=== PATIENT | male | born 1945 | race Caucasian/White ===

== ENCOUNTER 2017-06-05 11:24 | Emergency (ER) | payer MEDICARE ==
[2016-11-14 18:59] VITALS: BMI 23.1
[~2017-06-05 11:24] MED LIST: ADVAIR HFA 230-12 GM INH; ALBUTEROL0.63 MG/3 INH; ANTIVERT12.5 MG PO; ASPIRIN81 MG PO; BAYER CHEWABLE81 MG PO; CARDIZEM CD240 MG PO; CYCLOBENZAPRINE10 MG PO; DALIRESP500 MCG PO; FLORANEX / LACT1 TAB PO; FLUTICASONE PRO16 GM NASAL; HYDROCODONE-APA1 TAB PO; IPRAT-ALBUT 0.5-3 ML UPD; K-TAB10 MEQ PO; LEVAQUIN500 MG PO; LEVAQUIN750 MG PO; LEVITRA10 MG PO; LIPITOR20 MG PO; LOPRESSOR25 MG PO; MUCINEX600 MG PO; ORAPRED ODT10 MG/TAB PO; PRINIVIL20 MG PO; SINGULAIR10 MG PO; STERAPRED DS 1210 MG PO; TERAZOSIN HCL2 MG PO
== END 2017-06-05 12:35 | disposition home or self-care (01) ==
LOC: D.ER 11:24
DX: S61.412A Laceration without foreign body of left hand, initial encounter (principal); X58.XXXA Exposure to other specified factors, initial encounter; Y93.89 Activity, other specified; Y92.89 Other specified places as the place of occurrence of the external cause; I25.10 Atherosclerotic heart disease of native coronary artery without angina pectoris; J44.9 Chronic obstructive pulmonary disease, unspecified; I10 Essential (primary) hypertension

== ENCOUNTER 2017-08-14 21:19 | Inpatient (IN) | payer MEDICARE ==
[~2017-08-14] VITALS: Ht 182.9 cm; Wt 59.1 kg
[2017-08-14 21:58] LABS: BASOPHILS 0.5 % (0-2); HEMATOCRIT 43.7 % (42.0-54.0); HEMOGLOBIN 15.6 g/dL (13.5-17.5); IMMATURE GRANULOCYTES 0.1 % (0-5); LYMPHOCYTES 24.6 % (15-50); MCH 33.1 pg (26.0-34.0); MCHC 35.7 g/dL (31.0-37.0); MCV 92.6 fL (80.0-100.0); MEAN PLATELET VOLUME 10.1 fL (7.4-10.4); MONOCYTES 14.9 % (2-11); NEUTROPHILS 53.9 % (40-80); RBC 4.72 10x6/uL (4.20-6.10); RDW 13.2 % (11.5-14.5); WBC 8.4 10x3/uL (4.8-10.8)
[2017-08-14 22:07] LABS: PLATELET COUNT 153 10x3/uL (130-400)
[2017-08-14 22:13] LABS: ALKALINE PHOSPHATASE 78 U/L (46-116); ALT (SGPT) 27 U/L (10-68); BILIRUBIN - TOTAL 0.74 mg/dL (0.2-1.3); CALC OSMOLALITY 262 mosm/kg (275-300); CALCIUM 9.4 mg/dL (8.5-10.1); CARBON DIOXIDE 28.3 mmol/L (21.0-32.0); CHLORIDE - SERUM 97 mmol/L (98-107); CREATININE - SERUM 0.6 mg/dL (0.6-1.3); GLUCOSE 89 mg/dL (74-106); POTASSIUM - SERUM 3.8 mmol/L (3.5-5.1); SODIUM 133 mmol/L (136-145); UREA NITROGEN 8 mg/dL (7-18); eGFR NON AFRICAN AMERICAN > 90 mL/min (90-120)
[2017-08-14 22:24] LABS: CKMB 4.7 U/L (0.0-3.6); CREATINE KINASE 228 UL (21-232); TROPONIN-I < 0.017 ng/mL (0.000-0.060)
[2017-08-15] VITALS: BP 147/89
--- NOTE | 2017-08-15 00:05 | NUR ---
RECEIVED TO FLOOR FROM ER, PT ORIENTED TO FLOOR, DENIES NEEDS, CALL LIGHT IN REACH, PT HAS WALLET WITH $1,000 AND REFUSES TO SEND TO [facility], STATES HE HAS FAMILY COMING TO PICK IT UP IN THE MORNING, WILL CONTINUE TO MONITOR
[2017-08-15] MEDS ORDERED: PREDNISONE5 MG PO (00:27)
[2017-08-15 01:00] VITALS: BP 147/89; Ht 182.9 cm; Wt 59.1 kg
[2017-08-15 04:00] VITALS: BP 150/85
[2017-08-15 08:21] VITALS: BP 134/88
--- NOTE | 2017-08-15 10:11 | NUR ---
COFFEE AND NON SKID SOCKS PROVIDED AT THIS TIME. NO DISTRESS.
[2017-08-15] MEDS ORDERED: STERAPRED DS 1010 MG PO (10:53)
[2017-08-15 12:19] VITALS: BP 137/83
--- NOTE | 2017-08-15 13:37 | NUR ---
18 GAUGE IV REMOVED FROM LEFT AC PATIENT IS BEING DISCHARGED. CATHETER TIP INTACT. NO BLEEDING FROM STIE. 2X2 GAUZE APPLIED AND SECURED WITH TAPE. TOELRATED REMOVAL OF IV WELL. NO DISTRESS.
--- NOTE | 2017-08-15 14:19 | NUR ---
1400 DISCHARGE INSTRUCTION PROVIDED TO PATIENT. PATIENT VERBALIZED UNDERSTANDING OF ALL INSTRUCTIONS PROVIDED. PATIENT STATES HE WILL GET THE MEDICATION FROM [facility] TODAY AND GET THAT STARTED. TELEMETRY REMOVED 1415 PATIENT LEFT UNIT VIA WHEELCHAIR WITH ALL PERSONAL BELONGINGS. PATIENT IN NO ACUTE DISTRESS UPON LEAVING UNIT. PATIENT DISCHARGED TO HOME WITH FAMILY.
--- NOTE | 2017-08-15 17:59 | NUR ---
Late Entry 1215 Patient for discharge to home today. Patient's nebulizer medication changed to Duoneb. He receives his nebulizer medication from [facility] TC to [facility]. Received CB from on-call electric truck driver. Only the electric truck driver is available on the weekend. Will follow up with [facility] on Thursday for them to order the medication. Patient stated he will obtain the Duoneb from [facility].
== END 2017-08-15 14:15 | disposition home or self-care (01) | DRG 192 ==
LOC: D.ER 21:19 → D.M2 23:13
PROVIDERS: Family Medicine; ADMIT Family Medicine
DX: J44.1 Chronic obstructive pulmonary disease with (acute) exacerbation (principal); Z72.0 Tobacco use; Z57.2 Occupational exposure to dust; I10 Essential (primary) hypertension

== ENCOUNTER 2017-11-11 05:32 | Inpatient (IN) | payer MEDICARE ==
[~2017-11-11] VITALS: Ht 182.9 cm; Wt 66.9 kg
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
[~2017-11-11 05:32] MED LIST changes: +PREDNISONE5 MG PO; +STERAPRED DS 1010 MG PO
[2017-11-11 06:05] LABS: HEMATOCRIT 44.4 % (42.0-54.0); HEMOGLOBIN 15.9 g/dL (13.5-17.5); MCH 33.2 pg (26.0-34.0); MCHC 35.8 g/dL (31.0-37.0); MCV 92.7 fL (80.0-100.0); MEAN PLATELET VOLUME 10.5 fL (7.4-10.4); RBC 4.79 10x6/uL (4.20-6.10); RDW 13.6 % (11.5-14.5); WBC 3.9 10x3/uL (4.8-10.8)
[2017-11-11 06:14] LABS: PLATELET COUNT 113 10x3/uL (130-400)
[2017-11-11 06:35] LABS: ALBUMIN 3.6 g/dL (3.4-5.0); ALKALINE PHOSPHATASE 77 U/L (46-116); ALT (SGPT) 26 U/L (10-68); BILIRUBIN - TOTAL 0.47 mg/dL (0.2-1.3); CALC OSMOLALITY 246 mosm/kg (275-300); CALCIUM 8.7 mg/dL (8.5-10.1); CHLORIDE - SERUM 88 mmol/L (98-107); CREATININE - SERUM 0.8 mg/dL (0.6-1.3); GLUCOSE 109 mg/dL (74-106); PROTEIN - SERUM 6.5 g/dL (6.4-8.2); SODIUM 123 mmol/L (136-145); UREA NITROGEN 8 mg/dL (7-18); eGFR NON AFRICAN AMERICAN > 90 mL/min (90-120)
[2017-11-11 06:41] LABS: CREATINE KINASE 171 UL (21-232); MAGNESIUM - SERUM 1.8 mg/dL (1.8-2.4); PRO BNP 46 pg/mL (0-125)
[2017-11-11 06:42] LABS: TROPONIN-I < 0.017 ng/mL (0.000-0.060)
[2017-11-11 06:54] LABS: ANISOCYTOSIS OCC; EOSINOPHILS 1 % (0-7); LYMPHOCYTES 30 % (15-50); MONOCYTES 20 % (2-11); NEUTROPHILS 45 % (40-80); PLATELET ESTIMATE DECREASED
[2017-11-11 14:28] VITALS: BMI 20.4
[2017-11-11 17:32] VITALS: BP 148/87
[2017-11-12] VITALS: BP 128/66
[2017-11-12 05:14] LABS: CALC OSMOLALITY 267 mosm/kg (275-300); CALCIUM 8.5 mg/dL (8.5-10.1); CARBON DIOXIDE 27.6 mmol/L (21.0-32.0); CHLORIDE - SERUM 97 mmol/L (98-107); CREATININE - SERUM 0.7 mg/dL (0.6-1.3); MAGNESIUM - SERUM 1.9 mg/dL (1.8-2.4); PHOSPHOROUS 3.3 mg/dL (2.5-4.9); POTASSIUM - SERUM 3.9 mmol/L (3.5-5.1); SODIUM 133 mmol/L (136-145); UREA NITROGEN 10 mg/dL (7-18); eGFR NON AFRICAN AMERICAN > 90 mL/min (90-120)
[2017-11-12 05:18] LABS: GLUCOSE 161 mg/dL (74-106)
[2017-11-12 05:21] LABS: BASOPHILS 0 % (0-2); EOSINOPHILS 0 % (0-7); HEMATOCRIT 42.7 % (42.0-54.0); LYMPHOCYTES 10.3 % (15-50); MCH 32.3 pg (26.0-34.0); MCHC 35.1 g/dL (31.0-37.0); MEAN PLATELET VOLUME 10.3 fL (7.4-10.4); NEUTROPHILS 76.7 % (40-80); PLATELET COUNT 109 10x3/uL (130-400); RBC 4.64 10x6/uL (4.20-6.10); RDW 13.5 % (11.5-14.5)
[2017-11-12 07:47] LABS: HEMOGLOBIN A1C 5.1 % (4.8-6.0)
[2017-11-12 08:51] VITALS: BP 131/70
[2017-11-12 12:30] VITALS: BP 128/76
[2017-11-12 14:20] VITALS: Ht 182.9 cm; Wt 66.9 kg
[2017-11-12 20:00] VITALS: BP 114/62
[2017-11-13] VITALS: BP 115/55
[2017-11-13 04:00] VITALS: BP 106/58
[2017-11-13 05:29] LABS: BASOPHILS 0 % (0-2); EOSINOPHILS 0 % (0-7); IMMATURE GRANULOCYTES 0.2 % (0-5); LYMPHOCYTES 3.9 % (15-50); MCH 32.8 pg (26.0-34.0); MCV 93.7 fL (80.0-100.0); MEAN PLATELET VOLUME 10.6 fL (7.4-10.4); MONOCYTES 5.3 % (2-11); NEUTROPHILS 90.6 % (40-80); PLATELET COUNT 117 10x3/uL (130-400); RBC 4.27 10x6/uL (4.20-6.10); RDW 13.6 % (11.5-14.5)
[2017-11-13 05:32] LABS: WBC 8.2 10x3/uL (4.8-10.8)
[2017-11-13 05:39] LABS: CALC OSMOLALITY 270 mosm/kg (275-300); CALCIUM 8.4 mg/dL (8.5-10.1); CHLORIDE - SERUM 102 mmol/L (98-107); CREATININE - SERUM 0.6 mg/dL (0.6-1.3); GLUCOSE 165 mg/dL (74-106); POTASSIUM - SERUM 3.6 mmol/L (3.5-5.1); SODIUM 134 mmol/L (136-145); UREA NITROGEN 11 mg/dL (7-18); eGFR NON AFRICAN AMERICAN > 90 mL/min (90-120)
[2017-11-13 08:32] VITALS: BP 111/60
[2017-11-13 12:05] VITALS: BP 132/69
[2017-11-13 20:00] VITALS: BP 138/69
[2017-11-14] VITALS: BP 110/54
[2017-11-14 04:00] VITALS: BP 121/64
[2017-11-14 04:53] LABS: BASOPHILS 0 % (0-2); EOSINOPHILS 0 % (0-7); HEMATOCRIT 40.9 % (42.0-54.0); HEMOGLOBIN 14.1 g/dL (13.5-17.5); IMMATURE GRANULOCYTES 0.2 % (0-5); LYMPHOCYTES 4.9 % (15-50); MCH 32.8 pg (26.0-34.0); MCHC 34.5 g/dL (31.0-37.0); MCV 95.1 fL (80.0-100.0); MEAN PLATELET VOLUME 10.6 fL (7.4-10.4); MONOCYTES 5.8 % (2-11); NEUTROPHILS 89.1 % (40-80); PLATELET COUNT 124 10x3/uL (130-400); RDW 14.1 % (11.5-14.5); WBC 8.8 10x3/uL (4.8-10.8)
[2017-11-14 05:23] LABS: CALC OSMOLALITY 275 mosm/kg (275-300); CALCIUM 8.6 mg/dL (8.5-10.1); CARBON DIOXIDE 26.2 mmol/L (21.0-32.0); CHLORIDE - SERUM 102 mmol/L (98-107); CREATININE - SERUM 0.6 mg/dL (0.6-1.3); GLUCOSE 118 mg/dL (74-106); POTASSIUM - SERUM 3.8 mmol/L (3.5-5.1); SODIUM 137 mmol/L (136-145); eGFR NON AFRICAN AMERICAN > 90 mL/min (90-120)
[2017-11-14 05:26] LABS: UREA NITROGEN 16 mg/dL (7-18)
[2017-11-14 07:51] VITALS: BP 166/78
[2017-11-14] MEDS ORDERED: VIBRAMYCIN 100100 MG PO (08:17)
[2017-11-14] MEDS ORDERED: PREDNISONE10 MG PO (08:20)
== END 2017-11-14 12:21 | disposition home or self-care (01) | DRG 190 ==
LOC: D.ER 05:32 → D.M2 12:50
PROVIDERS: Emergency Medicine; Family Medicine; Internal Medicine Pulmonary Disease
DX: J44.0 Chronic obstructive pulmonary disease with (acute) lower respiratory infection (principal); J18.9 Pneumonia, unspecified organism; E87.1 Hypo-osmolality and hyponatremia; J44.1 Chronic obstructive pulmonary disease with (acute) exacerbation; I10 Essential (primary) hypertension; I25.10 Atherosclerotic heart disease of native coronary artery without angina pectoris; M54.5 Low back pain; G89.29 Other chronic pain; J30.9 Allergic rhinitis, unspecified; Z99.81 Dependence on supplemental oxygen; E78.5 Hyperlipidemia, unspecified; D69.6 Thrombocytopenia, unspecified; R76.11 Nonspecific reaction to tuberculin skin test without active tuberculosis; Z95.5 Presence of coronary angioplasty implant and graft; Z72.0 Tobacco use

== ENCOUNTER 2017-12-31 07:04 | Day surgery (SDC) | payer MEDICARE ==
[~2017-12-31] VITALS: Ht 182.9 cm; Wt 67.1 kg
--- NOTE | ~2017-12-31 | OP ---
PATIENT NAME: JOSE LEE MEDICAL RECORD: [id number] :[birth year] LOCATION:D.OPS ADMISSION DATE: SURGEON: FREDERICK QUINN MD DATE OF OPERATION: 12/31/2017 PREOPERATIVE DIAGNOSES: 1. Epigastric incisional hernia. 2. Recurrent right inguinal hernia. 3. Tobacco-dependence syndrome. 4. Chronic obstructive pulmonary disease. 5. Hypertension. 6. Hyperlipidemia. POSTOPERATIVE DIAGNOSES: 1. Epigastric incisional hernia. 2. Recurrent right inguinal hernia. 3. Tobacco-dependence syndrome. 4. Chronic obstructive pulmonary disease. 5. Hypertension. 6. Hyperlipidemia. PROCEDURES: 1. Epigastric ventral hernia repair without mesh. 2. Right inguinal hernia repair with medium PHS mesh. SURGEON: Frederick Quinn MD REPORT OF PROCEDURE: The patient's abdomen was prepped and draped in sterile fashion. A longitudinal incision was made overlying the epigastric hernia defect. We came around the hernia sac and we were able to push this back into the abdominal cavity. The fascial defect was approximately 1.2 cm in greatest diameter. This was wider than it was tall. We were able to free up the fascial edges and reapproximate the fascia using interrupted 0 Prolenes times 4. This was done in a transverse fashion with no tension. The sutures were then tacked down to where there were not sticking up towards the skin using interrupted 3-0 Vicryls. The subcutaneous tissues were irrigated out and then reapproximated with interrupted 3-0 Vicryl and the skin was closed with running subcutaneous 5-0 Monocryl. A 5 mL of 1% lidocaine plain was infused into the surrounding tissues. We then approached the right inguinal region. An oblique incision was made above the inguinal ligament. Electrocautery was used to dissect through the subcutaneous tissue, down to the external oblique fascia. This fascia was opened up using electrocautery to the external ring. Once inside, we were able to elevate the spermatic cord and a Huong was placed around it. The patient had a previous hernia repair. I did not definitively find a piece of mesh in the wounds. The patient did have a fat-containing hernia defect on the superior medial aspect of the inguinal canal. This was pushed back in place and the preperitoneal space of Retzius was opened up through this opening. A medium PHS mesh was then inserted through this opening and fanned out in the preperitoneal space. The mesh was then sutured into place with multiple interrupted 0 Vicryls. The wound was then irrigated out thoroughly with normal saline. We found the ilioinguinal nerve and this was high-ligated. The external oblique fascia was closed with running 2-0 Vicryl. Willie's was closed with interrupted 3-0 Vicryl and the skin was closed with running subcutaneous 5-0 Monocryl. A 10 mL of 0.25% Marcaine plain were infused into the surrounding tissues and the wounds were dressed appropriately. OPERATIVE REPORT [id number] JOSE LEE COMPLICATIONS: None. CONDITION: Stable. ANESTHESIA: Spinal and local. BLOOD LOSS: Minimal. TRANSINT:[id number] Voice Confirmation ID: [id number] DOCUMENT ID: [id number] FREDERICK QUINN MD CC: ROSY JACOBS DO [id number] DICTATION DATE: 12/31/17 1058 DRILL PUNCH OPERATOR: 12/31/17 1118 [facility] [address] [place] [address]
[~2017-12-31 07:04] MED LIST changes: +PREDNISONE10 MG PO; +VIBRAMYCIN 100100 MG PO
[2017-12-31 07:32] LABS: BASOPHILS 0.3 % (0-2); EOSINOPHILS 5.2 % (0-7); LYMPHOCYTES 27.4 % (15-50); MCH 32.3 pg (26.0-34.0); MCV 94.8 fL (80.0-100.0); MEAN PLATELET VOLUME 10.1 fL (7.4-10.4); MONOCYTES 15.4 % (2-11); NEUTROPHILS 51.7 % (40-80); RBC 4.96 10x6/uL (4.20-6.10); RDW 13.7 % (11.5-14.5); WBC 7.3 10x3/uL (4.8-10.8)
[2017-12-31 07:36] LABS: PLATELET COUNT 179 10x3/uL (130-400)
[2017-12-31 07:47] LABS: CALC OSMOLALITY 275 mosm/kg (275-300); CARBON DIOXIDE 29.1 mmol/L (21.0-32.0); CHLORIDE - SERUM 101 mmol/L (98-107); CREATININE - SERUM 0.8 mg/dL (0.6-1.3); GLUCOSE 86 mg/dL (74-106); SODIUM 139 mmol/L (136-145); UREA NITROGEN 11 mg/dL (7-18); eGFR NON AFRICAN AMERICAN > 90 mL/min (90-120)
[2017-12-31 08:36] VITALS: BP 130/84; Ht 182.9 cm; Wt 67.1 kg
[2017-12-31] MEDS ORDERED: HYDROCODONE-APA1 TAB PO (10:48)
== END 2017-12-31 14:15 | disposition home or self-care (01) ==
LOC: D.OPS 07:04
PROVIDERS: Surgery
DX: K43.2 Incisional hernia without obstruction or gangrene (principal); K40.91 Unilateral inguinal hernia, without obstruction or gangrene, recurrent

== ENCOUNTER 2018-01-06 17:43 | Emergency (ER) | payer MEDICARE ==
[2017-12-31 08:36] VITALS: BMI 20.1
[2018-01-06 18:36] LABS: BASOPHILS 0.4 % (0-2); EOSINOPHILS 1.9 % (0-7); HEMATOCRIT 38.5 % (42.0-54.0); HEMOGLOBIN 13.6 g/dL (13.5-17.5); IMMATURE GRANULOCYTES 0.2 % (0-5); MCH 32.6 pg (26.0-34.0); MCHC 35.3 g/dL (31.0-37.0); MCV 92.3 fL (80.0-100.0); MEAN PLATELET VOLUME 9.7 fL (7.4-10.4); MONOCYTES 15.3 % (2-11); NEUTROPHILS 73.2 % (40-80); PLATELET COUNT 155 10x3/uL (130-400); RBC 4.17 10x6/uL (4.20-6.10); RDW 13.3 % (11.5-14.5); WBC 5.2 10x3/uL (4.8-10.8)
[2018-01-06 19:12] LABS: ALBUMIN 3.3 g/dL (3.4-5.0); ALKALINE PHOSPHATASE 63 U/L (46-116); ALT (SGPT) 15 U/L (10-68); BILIRUBIN - TOTAL 0.33 mg/dL (0.2-1.3); CALC OSMOLALITY 261 mosm/kg (275-300); CALCIUM 8.6 mg/dL (8.5-10.1); CARBON DIOXIDE 26.3 mmol/L (21.0-32.0); CHLORIDE - SERUM 96 mmol/L (98-107); CREATININE - SERUM 0.7 mg/dL (0.6-1.3); GLUCOSE 108 mg/dL (74-106); POTASSIUM - SERUM 3.3 mmol/L (3.5-5.1); PROTEIN - SERUM 6.2 g/dL (6.4-8.2); SODIUM 131 mmol/L (136-145); UREA NITROGEN 7 mg/dL (7-18); eGFR NON AFRICAN AMERICAN > 90 mL/min (90-120)
== END 2018-01-06 21:15 | disposition home or self-care (01) ==
LOC: D.ER 17:43
PROVIDERS: Emergency Medicine
DX: J44.1 Chronic obstructive pulmonary disease with (acute) exacerbation (principal); J06.9 Acute upper respiratory infection, unspecified; F17.200 Nicotine dependence, unspecified, uncomplicated; I25.10 Atherosclerotic heart disease of native coronary artery without angina pectoris; I10 Essential (primary) hypertension

== ENCOUNTER → 2018-07-06 09:35 | Outpatient (CLI) | payer MEDICARE ==
[2017-12-31 08:36] VITALS: BMI 20.1
[~2018-07-06 09:35] MED LIST changes: +ALBUTEROL SULF8.5 GM INH; +BACLOFEN10 MG PO; +DESERYL50 M2 PO; +NORCO 10-325 TA1 TAB PO; +XOPENEX 1.1.25 MG/3 UPD; +ZESTRIL20 MG PO
[2018-07-08 11:18] LABS: IGG SUBCLASS 1 290 mg/dL (248-810); IGG SUBCLASS 2 150 mg/dL (130-555); IGG SUBCLASS 3 46 mg/dL (15-102); IGG SUBCLASS 4 72 mg/dL (2-96)
== END | disposition home or self-care (01) ==
LOC: D.RT 09:35
PROVIDERS: Internal Medicine Pulmonary Disease
DX: J44.9 Chronic obstructive pulmonary disease, unspecified (principal); D80.3 Selective deficiency of immunoglobulin G [IgG] subclasses

== ENCOUNTER 2018-08-14 12:06 | Emergency (ER) | payer MEDICARE ==
[~2018-08-14] VITALS: Ht 182.9 cm; Wt 65.9 kg
[~2018-08-14 12:06] MED LIST changes: -ALBUTEROL SULF8.5 GM INH; -BACLOFEN10 MG PO; -DESERYL50 M2 PO; -NORCO 10-325 TA1 TAB PO; -XOPENEX 1.1.25 MG/3 UPD; -ZESTRIL20 MG PO
[2018-08-14 12:11] VITALS: Ht 182.9 cm; Wt 65.9 kg
[2018-08-14 12:47] LABS: BASOPHILS 0.2 % (0-2); EOSINOPHILS 0.2 % (0-7); HEMATOCRIT 44.7 % (42.0-54.0); HEMOGLOBIN 15.9 g/dL (13.5-17.5); IMMATURE GRANULOCYTES 0.3 % (0-5); LYMPHOCYTES 27.1 % (15-50); MCH 33.6 pg (26.0-34.0); MCHC 35.6 g/dL (31.0-37.0); MCV 94.5 fL (80.0-100.0); MEAN PLATELET VOLUME 9.3 fL (7.4-10.4); MONOCYTES 8.1 % (2-11); NEUTROPHILS 64.1 % (40-80); PLATELET COUNT 125 10x3/uL (130-400); RBC 4.73 10x6/uL (4.20-6.10); WBC 5.9 10x3/uL (4.8-10.8)
[2018-08-14 13:00] LABS: ALBUMIN 3.4 g/dL (3.4-5.0); ALKALINE PHOSPHATASE 69 U/L (46-116); ALT (SGPT) 27 U/L (10-68); BILIRUBIN - TOTAL 0.35 mg/dL (0.2-1.3); CALC OSMOLALITY 257 mosm/kg (275-300); CALCIUM 8.8 mg/dL (8.5-10.1); CHLORIDE - SERUM 91 mmol/L (98-107); CREATININE - SERUM 0.9 mg/dL (0.6-1.3); GLUCOSE 110 mg/dL (74-106); POTASSIUM - SERUM 3.6 mmol/L (3.5-5.1); PROTEIN - SERUM 6.4 g/dL (6.4-8.2); SODIUM 129 mmol/L (136-145); UREA NITROGEN 6 mg/dL (7-18); eGFR NON AFRICAN AMERICAN 89 mL/min (90-120)
[2018-08-14 13:05] LABS: APTT 29.9 SECONDS (22.8-39.4); INR 0.94 (0.85-1.17); PROTIME 12.2 SECONDS (11.6-15.0)
[2018-08-14 13:07] LABS: D-DIMER-QUANTITATIVE 1.02 ug/mLFEU (0.20-0.54)
[2018-08-14 13:11] LABS: CKMB 1.3 U/L (0.0-3.6); CREATINE KINASE 93 UL (21-232); PRO BNP 84 pg/mL (0-125)
[2018-08-14 13:15] LABS: TROPONIN-I < 0.017 ng/mL (0.000-0.060)
[2018-08-14] MEDS ORDERED: XOPENEX 1.1.25 MG/3 UPD (16:10)
[2018-08-14 16:15] VITALS: BP 148/92
== END 2018-08-14 16:31 | disposition home or self-care (01) ==
LOC: D.ER 12:06
PROVIDERS: Family Medicine
DX: J44.1 Chronic obstructive pulmonary disease with (acute) exacerbation (principal); I10 Essential (primary) hypertension; Z99.81 Dependence on supplemental oxygen; F17.200 Nicotine dependence, unspecified, uncomplicated

== ENCOUNTER 2018-08-16 20:21 | Inpatient (IN) | payer MEDICARE, MEDICAID ==
[~2018-08-16] VITALS: Ht 182.9 cm; Wt 64.0 kg
[~2018-08-16 20:21] MED LIST changes: +XOPENEX 1.1.25 MG/3 UPD
[2018-08-16 21:03] VITALS: BP 140/82
[2018-08-16 21:20] LABS: BASOPHILS 0.2 % (0-2); EOSINOPHILS 0 % (0-7); HEMATOCRIT 41.9 % (42.0-54.0); HEMOGLOBIN 14.9 g/dL (13.5-17.5); IMMATURE GRANULOCYTES 0.3 % (0-5); LYMPHOCYTES 9.6 % (15-50); MCHC 35.6 g/dL (31.0-37.0); MCV 92.9 fL (80.0-100.0); MEAN PLATELET VOLUME 10.2 fL (7.4-10.4); MONOCYTES 9.2 % (2-11); NEUTROPHILS 80.7 % (40-80); RBC 4.51 10x6/uL (4.20-6.10); WBC 6.3 10x3/uL (4.8-10.8)
[2018-08-16 21:28] LABS: APTT 32.8 SECONDS (22.8-39.4); INR 0.92 (0.85-1.17)
[2018-08-16 21:29] LABS: D-DIMER-QUANTITATIVE 1.11 ug/mLFEU (0.20-0.54)
[2018-08-16 21:46] LABS: ALKALINE PHOSPHATASE 52 U/L (46-116); ALT (SGPT) 29 U/L (10-68); CALC OSMOLALITY 252 mosm/kg (275-300); CALCIUM 8.6 mg/dL (8.5-10.1); CARBON DIOXIDE 24.5 mmol/L (21.0-32.0); CHLORIDE - SERUM 91 mmol/L (98-107); CREATININE - SERUM 0.7 mg/dL (0.6-1.3); GLUCOSE 110 mg/dL (74-106); POTASSIUM - SERUM 3.6 mmol/L (3.5-5.1); SODIUM 125 mmol/L (136-145); UREA NITROGEN 12 mg/dL (7-18); eGFR NON AFRICAN AMERICAN > 90 mL/min (90-120)
[2018-08-16 21:49] LABS: CKMB 0.7 U/L (0.0-3.6); CREATINE KINASE 76 UL (21-232)
[2018-08-16 21:50] LABS: TROPONIN-I < 0.017 ng/mL (0.000-0.060)
[2018-08-16 22:15] LABS: PLATELET COUNT 93 10x3/uL (130-400)
[2018-08-16 22:21] VITALS: BP 122/62
[2018-08-16 22:33] LABS: PLATELET ESTIMATE DECREASED
[2018-08-16 22:56] VITALS: BP 118/64
[2018-08-17 00:40] VITALS: BP 105/69
[2018-08-17] MEDS ORDERED: SINGULAIR10 MG PO (01:17)
[2018-08-17] MEDS ORDERED: NORCO 10-325 TA1 TAB PO (01:18)
[2018-08-17] MEDS ORDERED: BACLOFEN10 MG PO (01:18)
[2018-08-17] MEDS ORDERED: FLUTICASONE PRO16 GM NASAL (01:21)
[2018-08-17] MEDS ORDERED: ZESTRIL20 MG PO (01:22)
[2018-08-17] MEDS ORDERED: DESERYL50 M2 PO (01:22)
[2018-08-17] MEDS ORDERED: LIPITOR20 MG PO (01:22)
[2018-08-17] MEDS ORDERED: ALBUTEROL SULF8.5 GM INH (01:23)
[2018-08-17 04:00] VITALS: BP 127/58
[2018-08-17 05:34] LABS: BASOPHILS 0 % (0-2); EOSINOPHILS 0 % (0-7); HEMATOCRIT 43.1 % (42.0-54.0); HEMOGLOBIN 15.4 g/dL (13.5-17.5); IMMATURE GRANULOCYTES 0.2 % (0-5); LYMPHOCYTES 4.5 % (15-50); MCH 33.2 pg (26.0-34.0); MCHC 35.7 g/dL (31.0-37.0); MCV 92.9 fL (80.0-100.0); MEAN PLATELET VOLUME 10.3 fL (7.4-10.4); MONOCYTES 3.4 % (2-11); NEUTROPHILS 91.9 % (40-80); PLATELET COUNT 100 10x3/uL (130-400); RBC 4.64 10x6/uL (4.20-6.10); RDW 14.1 % (11.5-14.5)
[2018-08-17 05:53] LABS: WBC 4.5 10x3/uL (4.8-10.8)
[2018-08-17 06:25] LABS: ALBUMIN 2.8 g/dL (3.4-5.0); ALKALINE PHOSPHATASE 46 U/L (46-116); ALT (SGPT) 30 U/L (10-68); BILIRUBIN - TOTAL 0.35 mg/dL (0.2-1.3); CALCIUM 8.5 mg/dL (8.5-10.1); CARBON DIOXIDE 27.7 mmol/L (21.0-32.0); CHLORIDE - SERUM 92 mmol/L (98-107); CKMB 0.8 U/L (0.0-3.6); CREATINE KINASE 59 UL (21-232); CREATININE - SERUM 0.7 mg/dL (0.6-1.3); PROTEIN - SERUM 5.9 g/dL (6.4-8.2); SODIUM 127 mmol/L (136-145); UREA NITROGEN 10 mg/dL (7-18); eGFR NON AFRICAN AMERICAN > 90 mL/min (90-120)
[2018-08-17 06:26] LABS: CALC OSMOLALITY 256 mosm/kg (275-300); GLUCOSE 159 mg/dL (74-106); TROPONIN-I < 0.017 ng/mL (0.000-0.060)
[2018-08-17 08:21] VITALS: BP 111/70
[2018-08-17 09:28] VITALS: Ht 182.9 cm; Wt 64.0 kg
[2018-08-17 11:23] VITALS: BP 106/63
[2018-08-17 15:39] VITALS: BP 113/71
[2018-08-17 23:42] VITALS: BP 121/71
[2018-08-18 01:57] VITALS: BP 108/73
[2018-08-18 05:16] LABS: BASOPHILS 0.2 % (0-2); EOSINOPHILS 0 % (0-7); HEMATOCRIT 40.5 % (42.0-54.0); HEMOGLOBIN 14.4 g/dL (13.5-17.5); IMMATURE GRANULOCYTES 0.2 % (0-5); LYMPHOCYTES 9.1 % (15-50); MCHC 35.6 g/dL (31.0-37.0); MCV 92.7 fL (80.0-100.0); MEAN PLATELET VOLUME 10.7 fL (7.4-10.4); MONOCYTES 9.8 % (2-11); NEUTROPHILS 80.7 % (40-80); PLATELET COUNT 110 10x3/uL (130-400); RBC 4.37 10x6/uL (4.20-6.10); RDW 13.6 % (11.5-14.5); WBC 4.4 10x3/uL (4.8-10.8)
[2018-08-18 05:41] LABS: ALBUMIN 2.6 g/dL (3.4-5.0); ALKALINE PHOSPHATASE 41 U/L (46-116); BILIRUBIN - TOTAL 0.37 mg/dL (0.2-1.3); CALC OSMOLALITY 261 mosm/kg (275-300); CALCIUM 8.2 mg/dL (8.5-10.1); CARBON DIOXIDE 28.2 mmol/L (21.0-32.0); CHLORIDE - SERUM 94 mmol/L (98-107); CREATININE - SERUM 0.6 mg/dL (0.6-1.3); GLUCOSE 141 mg/dL (74-106); PHOSPHOROUS 3.5 mg/dL (2.5-4.9); PROTEIN - SERUM 5.6 g/dL (6.4-8.2); SODIUM 130 mmol/L (136-145); UREA NITROGEN 11 mg/dL (7-18); eGFR NON AFRICAN AMERICAN > 90 mL/min (90-120)
[2018-08-18 05:45] LABS: ALT (SGPT) 22 U/L (10-68)
[2018-08-18 06:34] VITALS: BP 125/71
[2018-08-18 09:04] VITALS: BP 126/72
[2018-08-18 11:26] VITALS: BP 121/78
[2018-08-18 15:47] VITALS: BP 118/58
[2018-08-18 22:05] VITALS: BP 129/79
[2018-08-19 04:28] LABS: BASOPHILS 0.1 % (0-2); EOSINOPHILS 0 % (0-7); HEMATOCRIT 40.3 % (42.0-54.0); HEMOGLOBIN 14.4 g/dL (13.5-17.5); IMMATURE GRANULOCYTES 0.3 % (0-5); LYMPHOCYTES 7.8 % (15-50); MCH 33.3 pg (26.0-34.0); MCHC 35.7 g/dL (31.0-37.0); MCV 93.1 fL (80.0-100.0); MONOCYTES 3.9 % (2-11); NEUTROPHILS 87.9 % (40-80); RBC 4.33 10x6/uL (4.20-6.10); RDW 13.6 % (11.5-14.5)
[2018-08-19 04:43] LABS: PLATELET COUNT 133 10x3/uL (130-400); WBC 7.3 10x3/uL (4.8-10.8)
[2018-08-19 05:03] LABS: ALBUMIN 2.7 g/dL (3.4-5.0); ALKALINE PHOSPHATASE 42 U/L (46-116); ALT (SGPT) 24 U/L (10-68); BILIRUBIN - TOTAL 0.28 mg/dL (0.2-1.3); CALC OSMOLALITY 266 mosm/kg (275-300); CALCIUM 8.3 mg/dL (8.5-10.1); CARBON DIOXIDE 28.7 mmol/L (21.0-32.0); CHLORIDE - SERUM 97 mmol/L (98-107); CREATININE - SERUM 0.6 mg/dL (0.6-1.3); GLUCOSE 144 mg/dL (74-106); MAGNESIUM - SERUM 2.1 mg/dL (1.8-2.4); POTASSIUM - SERUM 4.1 mmol/L (3.5-5.1); PROTEIN - SERUM 5.6 g/dL (6.4-8.2); SODIUM 131 mmol/L (136-145); eGFR NON AFRICAN AMERICAN > 90 mL/min (90-120)
[2018-08-19 05:04] LABS: PHOSPHOROUS 2.5 mg/dL (2.5-4.9); UREA NITROGEN 15 mg/dL (7-18)
[2018-08-19 06:16] VITALS: BP 119/73
[2018-08-19 08:39] VITALS: BP 126/78
[2018-08-19 10:47] VITALS: BP 140/81
== END 2018-08-19 12:58 | disposition left against medical advice (07) | DRG 190 ==
LOC: D.ER 20:21 → D.M2 23:53
PROVIDERS: Family Medicine
DX: J44.0 Chronic obstructive pulmonary disease with (acute) lower respiratory infection (principal); J18.9 Pneumonia, unspecified organism; E87.1 Hypo-osmolality and hyponatremia; J44.1 Chronic obstructive pulmonary disease with (acute) exacerbation; Z99.81 Dependence on supplemental oxygen; E78.5 Hyperlipidemia, unspecified; I25.10 Atherosclerotic heart disease of native coronary artery without angina pectoris; Z95.5 Presence of coronary angioplasty implant and graft; I10 Essential (primary) hypertension; D72.819 Decreased white blood cell count, unspecified; D69.6 Thrombocytopenia, unspecified

== ENCOUNTER 2018-12-14 15:28 | Inpatient (IN) | payer MEDICARE, MEDICAID ==
[~2018-12-14] VITALS: Ht 182.9 cm; Wt 65.8 kg
[~2018-12-14 15:28] MED LIST changes: +ALBUTEROL SULF8.5 GM INH; +BACLOFEN10 MG PO; +DESERYL50 M2 PO; +NORCO 10-325 TA1 TAB PO; +ZESTRIL20 MG PO
[2018-12-14 15:56] LABS: BASOPHILS 0.1 % (0-2); EOSINOPHILS 0 % (0-7); HEMATOCRIT 45.3 % (42.0-54.0); HEMOGLOBIN 16.1 g/dL (13.5-17.5); IMMATURE GRANULOCYTES 0.2 % (0-5); LYMPHOCYTES 5.9 % (15-50); MCH 33.1 pg (26.0-34.0); MCHC 35.5 g/dL (31.0-37.0); NEUTROPHILS 78.8 % (40-80); PLATELET COUNT 154 10x3/uL (130-400); RBC 4.87 10x6/uL (4.20-6.10); RDW 13.8 % (11.5-14.5); WBC 17.1 10x3/uL (4.8-10.8)
[2018-12-14 16:07] LABS: INR 1.08 (0.85-1.17); PROTIME 13.5 SECONDS (11.6-15.0)
[2018-12-14 16:14] LABS: ALBUMIN 3.6 g/dL (3.4-5.0); ALKALINE PHOSPHATASE 77 U/L (46-116); ALT (SGPT) 20 U/L (10-68); BILIRUBIN - TOTAL 0.89 mg/dL (0.2-1.3); CALC OSMOLALITY 268 mosm/kg (275-300); CALCIUM 9.1 mg/dL (8.5-10.1); CARBON DIOXIDE 29.2 mmol/L (21.0-32.0); CHLORIDE - SERUM 97 mmol/L (98-107); CREATININE - SERUM 0.8 mg/dL (0.6-1.3); GLUCOSE 139 mg/dL (74-106); POTASSIUM - SERUM 3.8 mmol/L (3.5-5.1); SODIUM 134 mmol/L (136-145); UREA NITROGEN 11 mg/dL (7-18); eGFR NON AFRICAN AMERICAN > 90 mL/min (90-120)
[2018-12-14 16:27] LABS: CKMB 1.1 U/L (0.0-3.6); CREATINE KINASE 131 UL (21-232); PRO BNP 116 pg/mL (0-125); TROPONIN-I < 0.017 ng/mL (0.000-0.060)
[2018-12-14 17:12] VITALS: BP 152/80
--- NOTE | 2018-12-14 20:37 | NUR ---
tried to call and find out if room was ready for pt six times and six times there was no answer. reprot was given on prior shift.
--- NOTE | 2018-12-14 21:15 | NUR ---
PT TRANSFERED TO ROOM 1209 VIA STRETCHER, Roger Vela rn GAVE REPORT PRIOR TO LEAVING FOR THE DAY.
[2018-12-14 21:32] VITALS: BP 133/77
--- NOTE | 2018-12-14 21:32 | NUR ---
RECEIVED PT VIA STRETCHER FROM ED, PT AMB TO BR, VOIDED WITH NO DIFFICULTY, PT REFUSES GOWN, CHANGED INTO JOGGING PANTS, PT TO BED, VS OBTAINED, IV IN RIGHT FA INTACT WITH NO REDNESS OR EDEMA INFUSING VIA PUMP NS AT 100ML/HR, O2 AT 2L, PT ORIENTED TO ROOM, BED IN LOW POSITION, SIDE RAILS X 2, CALL LIGHT IN REACH
[2018-12-14 22:22] VITALS: BP 133/77; BMI 19.7
[2018-12-14 23:30] VITALS: BP 124/71
--- NOTE | 2018-12-15 04:04 | NUR ---
PATIENT IS AWAKE AND RESTING IN HIS BED. BED IS DOWN LOW WITH SIDE RAILS UP X2. CALL LIGHT IS IN REACH.
[2018-12-15 04:30] VITALS: BP 120/70
[2018-12-15 05:58] LABS: BASOPHILS 0.1 % (0-2); EOSINOPHILS 0 % (0-7); HEMATOCRIT 45.9 % (42.0-54.0); IMMATURE GRANULOCYTES 0.3 % (0-5); LYMPHOCYTES 4.8 % (15-50); MCH 32.7 pg (26.0-34.0); MCHC 34.9 g/dL (31.0-37.0); MCV 93.9 fL (80.0-100.0); MEAN PLATELET VOLUME 11.3 fL (7.4-10.4); MONOCYTES 1.2 % (2-11); NEUTROPHILS 93.6 % (40-80); PLATELET COUNT 171 10x3/uL (130-400); RBC 4.89 10x6/uL (4.20-6.10)
[2018-12-15 06:00] LABS: WBC 10.5 10x3/uL (4.8-10.8)
[2018-12-15 06:38] LABS: ALKALINE PHOSPHATASE 72 U/L (46-116); ALT (SGPT) 20 U/L (10-68); BILIRUBIN - TOTAL 0.58 mg/dL (0.2-1.3); CALC OSMOLALITY 275 mosm/kg (275-300); CARBON DIOXIDE 26.4 mmol/L (21.0-32.0); CHLORIDE - SERUM 99 mmol/L (98-107); CREATININE - SERUM 0.7 mg/dL (0.6-1.3); GLUCOSE 158 mg/dL (74-106); POTASSIUM - SERUM 3.8 mmol/L (3.5-5.1); PROTEIN - SERUM 6.5 g/dL (6.4-8.2); SODIUM 137 mmol/L (136-145); UREA NITROGEN 9 mg/dL (7-18); eGFR NON AFRICAN AMERICAN > 90 mL/min (90-120)
[2018-12-15 08:28] VITALS: Ht 182.9 cm; Wt 65.8 kg
[2018-12-15 09:50] VITALS: BP 157/78
--- NOTE | 2018-12-15 09:52 | MORECARE ---
CASE MANAGEMENT DISCHARGE SUMMARY PATIENT: JOSE LEE UNIT: [id number] ADM DATE: 12/14/18 AGE: 73 : 47 SEX: M ROOM/BED: D.1209 AUTHOR: ALEYDA YI PHYSICIAN: REFERRING PHYSICIAN: KUMAR JACOBS DO DATE OF SERVICE: 12/15/18 Discharge Plan Patient Name: JOSE LEE Facility: [facility]:[place] : 1945 Planned Disposition: Home Anticipated Discharge Date: Discharge Date: Expected LOS: Initial Reviewer: [email or web address] Initial Review Date: 12/15/2018 Generated: 12/15/18 10:52 am Comments DCP- Discharge Planning Updated by [email or web address]: Tanisha Love on 12/15/18 8:[address] Patient Name: JOSE LEE Admission Status: ER Accout number: [id number] Admission Date: 12-14-2018 : 1945 Admission Diagnosis: Attending: Kumar Jacobs Current LOS: 1 Anticipated DC Date: Planned Disposition: Home Primary Insurance: [facility] MEDICARE SOLUTIONS Discharge Planning Comments: CM MET WITH PATIENT ABOUT DC PLANNING/NEEDS. PATIENT STATES NO NEEDS AND PLANS TO DC TO HOME. STATES HOME IS A HANDICAP HOME. CM WILL FOLLOW AND ASSIST NEEDED WITH DC PLANNING/NEEDS. Gluer Machine Operator: Tanisha Love DCPIA - Discharge Planning Initial Assessment Updated by [email or web address]: Tanisha Love on 12/15/18 9:47 am * Is the patient Alert and Oriented? Yes * PCP REYNALDO * [facility] [address] * Preadmission Environment Home Alone * ADLs Independent * Equipment Nebulizer Oxygen * Other Equipment PORTABLE O2, STATES HOME IS HANDICAP ACCESABLE. * Community resources currently utilized None * Additional services required to return to the preadmission environment? No * Can the patient safely return to the preadmission environment? Yes * Has this patient been hospitalized within the prior 30 days at any hospital? No Patient Name: JOSE LEE Page [phone] at 0952 All edits/amendments must be made on the electronic document DICTATION DATE: 01/23/19 0951 CERAMIC MAKER DEMONSTRATOR: DM 12/15/1851 RPT#: [id number] DC DATE: STATUS: ADM IN [facility] [address] [place] [address] END OF REPORT
--- NOTE | 2018-12-15 11:00 | NUR ---
NORCO 10 MG PO GIVEN FOR LEVEL #10 BACK.
[2018-12-15 20:00] VITALS: BP 138/75
[2018-12-16] VITALS: BP 118/63
--- NOTE | 2018-12-16 02:32 | NUR ---
THE PATIENT APPEARS TO BE SLEEPING COMFORTABLY.
[2018-12-16 04:00] VITALS: BP 124/63
[2018-12-16] MEDS ORDERED: OMNICEF300 MG PO (07:10)
[2018-12-16] MEDS ORDERED: STERAPRED DS 1210 MG PO (07:10)
[2018-12-16] MEDS ORDERED: ZITHROMAX250 MG PO (07:10)
[2018-12-16 07:38] LABS: BASOPHILS 0 % (0-2); EOSINOPHILS 0 % (0-7); HEMATOCRIT 40.9 % (42.0-54.0); IMMATURE GRANULOCYTES 0.3 % (0-5); LYMPHOCYTES 4.1 % (15-50); MCH 32.3 pg (26.0-34.0); MCHC 34.2 g/dL (31.0-37.0); MCV 94.2 fL (80.0-100.0); MEAN PLATELET VOLUME 10.7 fL (7.4-10.4); MONOCYTES 6.2 % (2-11); NEUTROPHILS 89.4 % (40-80); PLATELET COUNT 174 10x3/uL (130-400); RBC 4.34 10x6/uL (4.20-6.10); RDW 13.8 % (11.5-14.5)
[2018-12-16 07:43] LABS: WBC 15.1 10x3/uL (4.8-10.8)
--- NOTE | 2018-12-16 08:00 | NUR ---
ASSESSMENT COMPLETE. IV TO R AC PATENT. O2 2L NC IN USE. UP AD GRETCHEN. DENIES ANY NEEDS AT THIS TIME.
[2018-12-16 08:04] LABS: ALBUMIN 2.6 g/dL (3.4-5.0); ALKALINE PHOSPHATASE 56 U/L (46-116); ALT (SGPT) 17 U/L (10-68); BILIRUBIN - TOTAL 0.27 mg/dL (0.2-1.3); CALC OSMOLALITY 281 mosm/kg (275-300); CALCIUM 8.7 mg/dL (8.5-10.1); CARBON DIOXIDE 26.5 mmol/L (21.0-32.0); CHLORIDE - SERUM 105 mmol/L (98-107); CREATININE - SERUM 0.6 mg/dL (0.6-1.3); GLUCOSE 149 mg/dL (74-106); PHOSPHOROUS 3.2 mg/dL (2.5-4.9); POTASSIUM - SERUM 4.1 mmol/L (3.5-5.1); PROTEIN - SERUM 5.6 g/dL (6.4-8.2); SODIUM 139 mmol/L (136-145); eGFR NON AFRICAN AMERICAN > 90 mL/min (90-120)
[2018-12-16 08:06] LABS: UREA NITROGEN 15 mg/dL (7-18)
--- NOTE | 2018-12-16 08:20 | NUR ---
SL REMOVED. CATHETER TIP INTACT. DISCHARGE TEACHING GIVEN TO PATIENT. VOICED UNDERSTANDING.
--- NOTE | 2018-12-16 09:05 | NUR ---
DC'D HOME. ESCORTED TO VEHICLE BY VOLUNTEER VIA WC WITH BELONGINGS.
[2018-12-16 10:06] VITALS: BP 137/58
--- NOTE | 2018-12-16 15:28 | MORECARE ---
CASE MANAGEMENT DISCHARGE SUMMARY PATIENT: JOSE LEE UNIT: [id number] ADM DATE: 12/14/18 AGE: 73 : 47 SEX: M ROOM/BED: D.1209 AUTHOR: ALEYDA YI PHYSICIAN: REFERRING PHYSICIAN: KUMAR JACOBS DO DATE OF SERVICE: 12/16/18 Discharge Plan Patient Name: JOSE LEE Facility: [facility]:[place] : 1945 Planned Disposition: Home Anticipated Discharge Date: Discharge Date: 12/16/2018 Expected LOS: Initial Reviewer: [email or web address] Initial Review Date: 12/15/2018 Generated: 12/16/18 4:27 pm Comments DCP- Discharge Planning Updated by [email or web address]: Tanisha Love on 12/15/18 8:[address] Patient Name: JOSE LEE Admission Status: ER Accout number: [id number] Admission Date: 12-14-2018 : 1945 Admission Diagnosis: Attending: Kumar Jacobs Current LOS: 1 Anticipated DC Date: Planned Disposition: Home Primary Insurance: [facility] MEDICARE SOLUTIONS Discharge Planning Comments: CM MET WITH PATIENT ABOUT DC PLANNING/NEEDS. PATIENT STATES NO NEEDS AND PLANS TO DC TO HOME. STATES HOME IS A HANDICAP HOME. CM WILL FOLLOW AND ASSIST NEEDED WITH DC PLANNING/NEEDS. Cinder Man: Tanisha Love DCPIA - Discharge Planning Initial Assessment Updated by [email or web address]: Tanisha Love on 12/15/18 9:47 am * Is the patient Alert and Oriented? Yes * PCP REYNALDO * [facility] [address] * Preadmission Environment Home Alone * ADLs Independent * Equipment Nebulizer Oxygen * Other Equipment PORTABLE O2, STATES HOME IS HANDICAP ACCESABLE. * Community resources currently utilized None * Additional services required to return to the preadmission environment? No * Can the patient safely return to the preadmission environment? Yes * Has this patient been hospitalized within the prior 30 days at any hospital? No Last DP export: 12/15/18 8:52 a Patient Name: JOSE LEE Page [phone] at 1528 All edits/amendments must be made on the electronic document DICTATION DATE: 12/16/18 1527 FIELD HORTICULTURAL SPECIALTY GROWER: TAMMY 12/16/18 1527 RPT#: [id number] DC DATE:12/16/18 STATUS: DIS IN [facility] [address] [place] [address] END OF REPORT
== END 2018-12-16 09:05 | disposition home or self-care (01) | DRG 202 ==
LOC: D.ER 15:28 → D.EDHOLD 17:58 → D.M3 17:58
PROVIDERS: Family Medicine; ADMIT Family Medicine
DX: J20.9 Acute bronchitis, unspecified (principal); J44.1 Chronic obstructive pulmonary disease with (acute) exacerbation; J96.12 Chronic respiratory failure with hypercapnia; J44.0 Chronic obstructive pulmonary disease with (acute) lower respiratory infection; I25.10 Atherosclerotic heart disease of native coronary artery without angina pectoris; Z95.5 Presence of coronary angioplasty implant and graft; Z72.0 Tobacco use

== ENCOUNTER 2019-01-29 11:29 | Inpatient (IN) | payer MEDICARE, MEDICAID ==
[~2019-01-29] VITALS: Ht 182.9 cm; Wt 65.9 kg
[~2019-01-29 11:29] MED LIST changes: +OMNICEF300 MG PO; +ZITHROMAX250 MG PO
[2019-01-29 12:48] LABS: BASOPHILS 0 % (0-2); EOSINOPHILS 0 % (0-7); HEMATOCRIT 45.7 % (42.0-54.0); IMMATURE GRANULOCYTES 0.1 % (0-5); LYMPHOCYTES 13.3 % (15-50); MCH 32.3 pg (26.0-34.0); MCV 92.1 fL (80.0-100.0); MEAN PLATELET VOLUME 10.2 fL (7.4-10.4); MONOCYTES 10.1 % (2-11); NEUTROPHILS 76.5 % (40-80); RBC 4.96 10x6/uL (4.20-6.10); RDW 13.8 % (11.5-14.5)
[2019-01-29 12:58] LABS: APTT 26.1 SECONDS (22.8-39.4); INR 0.97 (0.85-1.17); PROTIME 12.4 SECONDS (11.6-15.0)
[2019-01-29 13:06] LABS: ALBUMIN 3.8 g/dL (3.4-5.0); ALKALINE PHOSPHATASE 83 U/L (46-116); ALT (SGPT) 26 U/L (10-68); BILIRUBIN - TOTAL 0.66 mg/dL (0.2-1.3); CALC OSMOLALITY 270 mosm/kg (275-300); CALCIUM 9.4 mg/dL (8.5-10.1); CARBON DIOXIDE 30.7 mmol/L (21.0-32.0); CHLORIDE - SERUM 97 mmol/L (98-107); CREATININE - SERUM 0.7 mg/dL (0.6-1.3); GLUCOSE 103 mg/dL (74-106); POTASSIUM - SERUM 4.4 mmol/L (3.5-5.1); SODIUM 136 mmol/L (136-145); UREA NITROGEN 9 mg/dL (7-18); eGFR NON AFRICAN AMERICAN > 90 mL/min (90-120)
[2019-01-29 13:09] LABS: PLATELET COUNT 218 10x3/uL (130-400)
[2019-01-29 13:17] LABS: CKMB 4.9 U/L (0.0-3.6); CREATINE KINASE 130 UL (21-232); PRO BNP 40 pg/mL (0-125); TROPONIN-I < 0.017 ng/mL (0.000-0.060)
[2019-01-29 15:25] VITALS: BP 170/91; Ht 182.9 cm; Wt 65.9 kg
[2019-01-29 20:36] VITALS: BP 144/87
[2019-01-29 23:55] VITALS: BP 135/87
[2019-01-30 04:20] VITALS: BP 149/88
[2019-01-30 06:44] LABS: BASOPHILS 0 % (0-2); EOSINOPHILS 0 % (0-7); HEMATOCRIT 45.3 % (42.0-54.0); HEMOGLOBIN 15.4 g/dL (13.5-17.5); LYMPHOCYTES 20.1 % (15-50); MCH 31.6 pg (26.0-34.0); MEAN PLATELET VOLUME 10.1 fL (7.4-10.4); MONOCYTES 5.9 % (2-11); PLATELET COUNT 215 10x3/uL (130-400); RBC 4.87 10x6/uL (4.20-6.10); RDW 13.6 % (11.5-14.5)
[2019-01-30 06:49] LABS: WBC 3.5 10x3/uL (4.8-10.8)
[2019-01-30 07:14] LABS: ALBUMIN 3.4 g/dL (3.4-5.0); ALKALINE PHOSPHATASE 75 U/L (46-116); ALT (SGPT) 22 U/L (10-68); BILIRUBIN - TOTAL 0.57 mg/dL (0.2-1.3); CALC OSMOLALITY 275 mosm/kg (275-300); CALCIUM 9.1 mg/dL (8.5-10.1); CARBON DIOXIDE 33.4 mmol/L (21.0-32.0); CHLORIDE - SERUM 99 mmol/L (98-107); CREATININE - SERUM 0.6 mg/dL (0.6-1.3); GLUCOSE 112 mg/dL (74-106); MAGNESIUM - SERUM 2.1 mg/dL (1.8-2.4); POTASSIUM - SERUM 4.6 mmol/L (3.5-5.1); PROTEIN - SERUM 6.6 g/dL (6.4-8.2); SODIUM 138 mmol/L (136-145); UREA NITROGEN 10 mg/dL (7-18); eGFR NON AFRICAN AMERICAN > 90 mL/min (90-120)
[2019-01-30] MEDS ORDERED: LIDEX 0.05% OIN15 GM TOPICAL (07:59)
--- NOTE | 2019-01-30 08:00 | NUR ---
PT ALERT X 4. EXPIRATORY WHEEZES TO ALL FINK, INSPIRATORY AND EXPIRATORY WHEEZES TO RIGHT LOWER LOBE, 2L O2 PER NC. TELEMETRY IN PLACE. IV TO RIGHT FOREARM, SALINE LOCKED. PT REPORTING PAIN 08/02, MEDICATED PER ORDERS, WILL MONITOR. BED LOW, CALL LIGHT IN REACH. NO OTHER NEEDS AT THIS TIME.
[2019-01-30 08:59] VITALS: BP 142/74
[2019-01-30 13:09] VITALS: BP 123/89
[2019-01-30 16:47] VITALS: BP 153/81
[2019-01-30 20:00] VITALS: BP 140/77
[2019-01-31] VITALS: BP 138/69
[2019-01-31 03:00] VITALS: BP 159/75
[2019-01-31 06:04] LABS: BASOPHILS 0 % (0-2); EOSINOPHILS 0 % (0-7); HEMOGLOBIN 15.4 g/dL (13.5-17.5); IMMATURE GRANULOCYTES 0.3 % (0-5); LYMPHOCYTES 8.2 % (15-50); MCH 31.9 pg (26.0-34.0); MCHC 34.2 g/dL (31.0-37.0); MCV 93.2 fL (80.0-100.0); MEAN PLATELET VOLUME 10.5 fL (7.4-10.4); MONOCYTES 7.9 % (2-11); NEUTROPHILS 83.6 % (40-80); PLATELET COUNT 235 10x3/uL (130-400); RBC 4.83 10x6/uL (4.20-6.10); RDW 13.6 % (11.5-14.5)
[2019-01-31 06:08] LABS: WBC 7.6 10x3/uL (4.8-10.8)
[2019-01-31 06:47] LABS: ALBUMIN 3.2 g/dL (3.4-5.0); ALKALINE PHOSPHATASE 68 U/L (46-116); ALT (SGPT) 26 U/L (10-68); BILIRUBIN - TOTAL 0.47 mg/dL (0.2-1.3); CALC OSMOLALITY 280 mosm/kg (275-300); CARBON DIOXIDE 31.5 mmol/L (21.0-32.0); CHLORIDE - SERUM 100 mmol/L (98-107); CREATININE - SERUM 0.6 mg/dL (0.6-1.3); GLUCOSE 116 mg/dL (74-106); MAGNESIUM - SERUM 2.3 mg/dL (1.8-2.4); POTASSIUM - SERUM 4.6 mmol/L (3.5-5.1); PROTEIN - SERUM 6.2 g/dL (6.4-8.2); SODIUM 139 mmol/L (136-145); eGFR NON AFRICAN AMERICAN > 90 mL/min (90-120)
[2019-01-31 06:51] LABS: UREA NITROGEN 17 mg/dL (7-18)
--- NOTE | 2019-01-31 07:15 | NUR ---
MORNING ASSESMSMENT COMPLETE. SEE ASSESSMENT FLOWSHEET FOR FURTHER DETAILS. PT LYING IN BED AAO X4 TO PERSON, PLACE, TIME AND SITUATION. DENIES NEEDS AT THIS TIME. CL IN REACH. SIDE RAILS UP X3 FOR PATIENT SAEFTY.
[2019-01-31 08:44] VITALS: BP 140/84
--- NOTE | 2019-01-31 12:00 | NUR ---
PIV TO R FA IBNFILTRATED. RESITED 20 G TO R INNER FA X1 ATTEMPT. SITE PATENT AND FLUSHES WELL.
[2019-01-31 12:38] VITALS: BP 140/73
[2019-01-31 17:17] VITALS: BP 135/85
--- NOTE | 2019-01-31 19:45 | NUR ---
PT SITTING UP IN BED, NO SIGNS OF DISTRESS. ALERT AND ORIENTED. O2 2L/NC. IV R FA SL. DRESSING CDI. DENIES NEEDS AT THIS TIME. CL IN REACH, WILL CONT TO MONITOR
[2019-01-31 20:33] VITALS: BP 145/85
[2019-02-01 04:37] LABS: BASOPHILS 0 % (0-2); EOSINOPHILS 0 % (0-7); HEMATOCRIT 43.2 % (42.0-54.0); HEMOGLOBIN 14.7 g/dL (13.5-17.5); IMMATURE GRANULOCYTES 0.4 % (0-5); LYMPHOCYTES 7.7 % (15-50); MCH 31.7 pg (26.0-34.0); MCV 93.3 fL (80.0-100.0); MEAN PLATELET VOLUME 10.6 fL (7.4-10.4); NEUTROPHILS 86.9 % (40-80); PLATELET COUNT 228 10x3/uL (130-400); RBC 4.63 10x6/uL (4.20-6.10); RDW 13.4 % (11.5-14.5); WBC 7.3 10x3/uL (4.8-10.8)
[2019-02-01 05:02] LABS: ALBUMIN 3.1 g/dL (3.4-5.0); ALKALINE PHOSPHATASE 55 U/L (46-116); ALT (SGPT) 30 U/L (10-68); BILIRUBIN - TOTAL 0.44 mg/dL (0.2-1.3); CALC OSMOLALITY 273 mosm/kg (275-300); CALCIUM 8.7 mg/dL (8.5-10.1); CARBON DIOXIDE 33.8 mmol/L (21.0-32.0); CHLORIDE - SERUM 99 mmol/L (98-107); CREATININE - SERUM 0.7 mg/dL (0.6-1.3); GLUCOSE 121 mg/dL (74-106); MAGNESIUM - SERUM 2.3 mg/dL (1.8-2.4); POTASSIUM - SERUM 4.6 mmol/L (3.5-5.1); PROTEIN - SERUM 5.8 g/dL (6.4-8.2); SODIUM 135 mmol/L (136-145); eGFR NON AFRICAN AMERICAN > 90 mL/min (90-120)
[2019-02-01 05:08] LABS: UREA NITROGEN 22 mg/dL (7-18)
[2019-02-01 05:48] VITALS: BP 137/76
--- NOTE | 2019-02-01 07:30 | NUR ---
REC'D IN BED AWAKE AND ALERT. RESP EVEN AND UNLABORED WITH NO DISTRESS NOTED. CAN EXPRESS NEEDS AND WANTS. NO C/O NOTED OR VOICED. ASSESSMENT COMPLETED. C/L IN REACH AT BEDSIDE.
[2019-02-01] MEDS ORDERED: LEVOFLOXACIN500 MG PO (09:00)
[2019-02-01] MEDS ORDERED: PREDNISONE10 MG PO (09:09)
[2019-02-01 09:46] VITALS: BP 132/83
--- NOTE | 2019-02-01 10:01 | MORECARE ---
CASE MANAGEMENT DISCHARGE SUMMARY PATIENT: JOSE LEE UNIT: [id number] ADM DATE: 01/29/19 AGE: 73 : 47 SEX: M ROOM/BED: D.2202 AUTHOR: ALEYDA YI PHYSICIAN: REFERRING PHYSICIAN: ROSY SHEETS MD DATE OF SERVICE: 02/01/19 Discharge Plan Patient Name: JOSE LEE Facility: [facility]:[place] : 1945 Planned Disposition: Home or Self Care Anticipated Discharge Date: Discharge Date: Expected LOS: Initial Reviewer: [email or web address] Initial Review Date: 01/29/2019 Generated: 02/01/19 11:00 am Comments DCP- Discharge Planning Updated by [email or web address]: Roseline De Los Santos on 02/01/19 9:[address] Patient Name: JOSE LEE Admission Status: ER Accout number: [id number] Admission Date: 01-29-2019 : 1945 Admission Diagnosis: Attending: ROSY SHEETS Current LOS: 3 Anticipated DC Date: Planned Disposition: Home or Self Care Primary Insurance: [facility] MEDICARE SOLUTIONS Discharge Planning Comments: CM met with patient to complete initial dc planning assessment. CM educated patient on the CM role and verbal consent given by patient to complete assessment. Patient lives at home where he states he is independent with his care. At discharge patient plans to return home and feels this is a safe discharge. His landlord/friend Prasanth Matamoros will be his one to drive him home and he states she checks on him everyday. CM discussed availability of home health, rehab services, and medical equipment. Patient denied known discharge needs at this time. He uses [facility] for his home O2 and Nebulizer. He has portable O2, walker, cane, and a handicap bathroom. He does not want Home Health at this time. CM will continue to follow and will assist as needed with dc plans/needs. Aerial Hurricane Hunter: Roseline De Los Santos DCPIA - Discharge Planning Initial Assessment Updated by [email or web address]: Roseline De Los Santos on 02/01/19 9:57 am * Is the patient Alert and Oriented? Yes * How many steps to enter\exit or inside your home? * PCP REYNALDO * Pharmacy [facility] [address] * Preadmission Environment Home Alone * ADLs Independent * Equipment Cane Elevated [place] Seat Grab Bars Nebulizer Oxygen Rolling Walker Walker * Other Equipment HANDICAP SHOWER * List name and contact numbers for known caregivers / representatives who currently or will assist patient after discharge: PRASANTH MATAMOROS ([phone]) * Verbal permission to speak to the caregivers and representatives has been obtained from the patient. N/A * Community resources currently utilized None * Additional services required to return to the preadmission environment? No * Can the patient safely return to the preadmission environment? Yes * Has this patient been hospitalized within the prior 30 days at any hospital? No Coverage Notice Reviewer: [email or web address] Avis De Los Santos Notice Issued Date-Time: 02/01/2019 9:40 Notice Type: IM Discharge Notice Notice Delivered To: Patient Relationship to Patient: Sand Slinger Operator Name: Delivery Method: HAND - Hand Delivered Brigitte Days: Prior Verbal Notification: Recipient Understood Notice: Yes Recipient Signature: Yes Med Rec Note Co-signed by Attending: Coverage Notice Comment: Patient Name: JOSE LEE Page [phone] at 1001 All edits/amendments must be made on the electronic document DICTATION DATE: 02/01/19 1000 MELTER SUPERVISOR OPEN HEARTH FURNACE: TAMMY 02/01/19 1000 RPT#: [id number] DC DATE: STATUS: ADM IN [facility] [address] [place] [address] END OF REPORT
--- NOTE | 2019-02-01 10:08 | MORECARE ---
CASE MANAGEMENT DISCHARGE SUMMARY PATIENT: JOSE LEE UNIT: [id number] ADM DATE: 01/29/19 AGE: 73 : [birth year] SEX: M ROOM/BED: D.2202 AUTHOR: ALEYDA YI PHYSICIAN: REFERRING PHYSICIAN: ROSY SHEETS MD DATE OF SERVICE: 02/01/19 Discharge Plan Patient Name: JOSE LEE Facility: [facility]:[place] : 1945 Planned Disposition: Home or Self Care Anticipated Discharge Date: Discharge Date: Expected LOS: Initial Reviewer: [email or web address] Initial Review Date: 01/29/2019 Generated: 02/01/19 11:08 am Comments DCP- Discharge Planning Updated by [email or web address]: Roseline De Los Santos on 02/01/19 9:[address] IMM served and explained to patient, copy given and placed in chart. COLETTE form signed for [facility] DCP- Discharge Planning Updated by [email or web address]: Roseline De Los Santos on 02/01/19 9:[address] Patient Name: JOSE LEE Admission Status: ER Accout number: [id number] Admission Date: 01-29-2019 : 1945 Admission Diagnosis: Attending: ROSY SHEETS Current LOS: 3 Anticipated DC Date: Planned Disposition: Home or Self Care Primary Insurance: [facility] MEDICARE SOLUTIONS Discharge Planning Comments: CM met with patient to complete initial dc planning assessment. CM educated patient on the CM role and verbal consent given by patient to complete assessment. Patient lives at home where he states he is independent with his care. At discharge patient plans to return home and feels this is a safe discharge. His landlord/friend Prasanth Matamoros will be his one to drive him home and he states she checks on him everyday. CM discussed availability of home health, rehab services, and medical equipment. Patient denied known discharge needs at this time. He uses [facility] for his home O2 and Nebulizer. He has portable O2, walker, cane, and a handicap bathroom. He does not want Home Health at this time. CM will continue to follow and will assist as needed with dc plans/needs. Turkey Farmer: Roseline De Los Santos DCPIA - Discharge Planning Initial Assessment Updated by [id number]: Roseline De Los Santos on 02/01/19 9:57 am * Is the patient Alert and Oriented? Yes * How many steps to enter\exit or inside your home? * PCP REYNALDO * Pharmacy [facility] [address] * Preadmission Environment Home Alone * ADLs Independent * Equipment Cane Elevated [place] Seat Grab Bars Nebulizer Oxygen Rolling Walker Walker * Other Equipment HANDICAP SHOWER * List name and contact numbers for known caregivers / representatives who currently or will assist patient after discharge: PRASANTH DIANESON ([phone]) * Verbal permission to speak to the caregivers and representatives has been obtained from the patient. N/A * Community resources currently utilized None * Additional services required to return to the preadmission environment? No * Can the patient safely return to the preadmission environment? Yes * Has this patient been hospitalized within the prior 30 days at any hospital? No Coverage Notice Reviewer: [id number] - Roseline De Los Santos Notice Issued Date-Time: 02/01/2019 9:40 Notice Type: IM Discharge Notice Notice Delivered To: Patient Relationship to Patient: Rail Walker Name: Delivery Method: HAND - Hand Delivered Brigitte Days: Prior Verbal Notification: Recipient Understood Notice: Yes Recipient Signature: Yes Med Rec Note Co-signed by Attending: Coverage Notice Comment: Last DP export: 02/01/19 9:01 a Patient Name: JOSE LEE Page [phone] at 1008 All edits/amendments must be made on the electronic document DICTATION DATE: 02/01/19 1007 ENERGY SYSTEMS ENGINEER: DM 02/01/[address] [facility] RPT#: [id number] DC DATE: STATUS: ADM IN [facility] [address] [place] [address] END OF REPORT
[2019-02-01] MEDS ORDERED: SYMBICORT 16010.2 GM INH (14:45)
--- NOTE | 2019-02-01 14:45 | NUR ---
DC HOME AT THIS TIME VOICE UNDERSTANDING OF DC ORDERS. IV DC. NO C/O NOTED. WAS IN STABLE CONDITION UP ON DC.
[2019-02-01 15:10] VITALS: BP 143/68
--- NOTE | 2019-02-02 15:12 | MORECARE ---
CASE MANAGEMENT DISCHARGE SUMMARY PATIENT: JOSE LEE UNIT: [id number] ADM DATE: 01/29/19 AGE: 73 : [birth year] SEX: M ROOM/BED: D.2202 AUTHOR: ALEYDA YI PHYSICIAN: REFERRING PHYSICIAN: ROSY SHEETS MD DATE OF SERVICE: 02/02/19 Discharge Plan Patient Name: JOSE LEE Facility: [facility]:[place] : 1945 Planned Disposition: Home or Self Care Anticipated Discharge Date: Discharge Date: 02/01/2019 Expected LOS: Initial Reviewer: [email or web address] Initial Review Date: 01/29/2019 Generated: 02/02/19 4:11 pm Comments DCP- Discharge Planning Updated by [email or web address]: Roseline De Los Santos on 02/01/19 9:[address] IMM served and explained to patient, copy given and placed in chart. COLETTE form signed for [employer] DCP- Discharge Planning Updated by [email or web address]: Roseline De Los Santos on 02/01/19 9:[address] Patient Name: JOSE LEE Admission Status: ER Accout number: [id number] Admission Date: 01-29-2019 : 1945 Admission Diagnosis: Attending: ROSY SHEETS Current LOS: 3 Anticipated DC Date: Planned Disposition: Home or Self Care Primary Insurance: [facility] MEDICARE SOLUTIONS Discharge Planning Comments: CM met with patient to complete initial dc planning assessment. CM educated patient on the CM role and verbal consent given by patient to complete assessment. Patient lives at home where he states he is independent with his care. At discharge patient plans to return home and feels this is a safe discharge. His landlord/friend Prasanth Matamoros will be his one to drive him home and he states she checks on him everyday. CM discussed availability of home health, rehab services, and medical equipment. Patient denied known discharge needs at this time. He uses [employer] for his home O2 and Nebulizer. He has portable O2, walker, cane, and a handicap bathroom. He does not want Home Health at this time. CM will continue to follow and will assist as needed with dc plans/needs. Health Center Assistant: Roseline De Los Santos DCPIA - Discharge Planning Initial Assessment Updated by [email or web address]: Roseline De Los Santos on 02/01/19 9:57 am * Is the patient Alert and Oriented? Yes * How many steps to enter\exit or inside your home? * PCP REYNALDO * Pharmacy [facility] [address] [place] * Preadmission Environment Home Alone * ADLs Independent * Equipment Cane Elevated Tol[place] Seat Grab Bars Nebulizer Oxygen Rolling Walker Walker * Other Equipment HANDICAP SHOWER * List name and contact numbers for known caregivers / representatives who currently or will assist patient after discharge: PRASANTH BRAULIO ([phone]) * Verbal permission to speak to the caregivers and representatives has been obtained from the patient. N/A * Community resources currently utilized None * Additional services required to return to the preadmission environment? No * Can the patient safely return to the preadmission environment? Yes * Has this patient been hospitalized within the prior 30 days at any hospital? No Coverage Notice Reviewer: [id number] - Roseline De Los Santos Notice Issued Date-Time: 02/01/2019 9:40 Notice Type: IM Discharge Notice Notice Delivered To: Patient Relationship to Patient: Powder Coat Painter Name: Delivery Method: HAND - Hand Delivered Brigitte Days: Prior Verbal Notification: Recipient Understood Notice: Yes Recipient Signature: Yes Med Rec Note Co-signed by Attending: Coverage Notice Comment: Last DP export: 02/01/19 9:08 a Patient Name: JOSE LEE Page 58550 at 1512 All edits/amendments must be made on the electronic document DICTATION DATE: 02/02/191510 CELL ATTENDANT: TAMMY 02/02/191510 RPT#: [id number] DC DATE:02/01/19 STATUS: DIS IN [facility] [address] [place] [address] END OF REPORT
== END 2019-02-01 15:18 | disposition home or self-care (01) | DRG 191 ==
LOC: D.ER 11:29 → D.MS 14:42
PROVIDERS: Family Medicine; ADMIT Emergency Medicine; ATTEND Emergency Medicine
DX: J44.1 Chronic obstructive pulmonary disease with (acute) exacerbation (principal); J90 Pleural effusion, not elsewhere classified; F17.213 Nicotine dependence, cigarettes, with withdrawal; I10 Essential (primary) hypertension; I25.10 Atherosclerotic heart disease of native coronary artery without angina pectoris; J20.9 Acute bronchitis, unspecified; J44.0 Chronic obstructive pulmonary disease with (acute) lower respiratory infection

== ENCOUNTER 2019-03-25 18:06 | Inpatient (IN) | payer MEDICARE, MEDICAID ==
[~2019-03-25 18:06] MED LIST changes: +LEVOFLOXACIN500 MG PO; +LIDEX 0.05% OIN15 GM TOPICAL; +SYMBICORT 16010.2 GM INH
--- NOTE | 2019-03-25 19:13 | NUR ---
REPORT GIVEN TO ON COMING SHIFT.
[2019-03-25 19:20] LABS: APTT 26.1 SECONDS (22.8-39.4); BASOPHILS 0 % (0-2); EOSINOPHILS 0 % (0-7); HEMATOCRIT 47.6 % (42.0-54.0); HEMOGLOBIN 16.5 g/dL (13.5-17.5); IMMATURE GRANULOCYTES 0.3 % (0-5); INR 1.02 (0.85-1.17); LYMPHOCYTES 11.1 % (15-50); MCH 33.3 pg (26.0-34.0); MCHC 34.7 g/dL (31.0-37.0); MEAN PLATELET VOLUME 10.2 fL (7.4-10.4); MONOCYTES 12.8 % (2-11); NEUTROPHILS 75.8 % (40-80); PLATELET COUNT 256 10x3/uL (130-400); PROTIME 12.9 SECONDS (11.6-15.0); RBC 4.96 10x6/uL (4.20-6.10); RDW 14.7 % (11.5-14.5); WBC 11.4 10x3/uL (4.8-10.8)
[2019-03-25 19:23] LABS: ALBUMIN 3.9 g/dL (3.4-5.0); ALKALINE PHOSPHATASE 62 U/L (46-116); ALT (SGPT) 32 U/L (10-68); BILIRUBIN - TOTAL 0.71 mg/dL (0.2-1.3); CALC OSMOLALITY 268 mosm/kg (275-300); CALCIUM 9.6 mg/dL (8.5-10.1); CARBON DIOXIDE 31.1 mmol/L (21.0-32.0); CHLORIDE - SERUM 96 mmol/L (98-107); CREATININE - SERUM 0.7 mg/dL (0.6-1.3); GLUCOSE 93 mg/dL (74-106); POTASSIUM - SERUM 4.4 mmol/L (3.5-5.1); PROTEIN - SERUM 6.9 g/dL (6.4-8.2); SODIUM 134 mmol/L (136-145); UREA NITROGEN 14 mg/dL (7-18); eGFR NON AFRICAN AMERICAN > 90 mL/min (90-120)
[2019-03-25 19:41] LABS: CREATINE KINASE 165 UL (21-232); PRO BNP 2168 pg/mL (0-125)
[2019-03-25 19:47] LABS: TROPONIN-I 0.065 ng/mL (0.000-0.060)
--- NOTE | 2019-03-25 20:05 | NUR ---
PT ARRIVED TO FLOOR VIA WHEELCHAIR WITH ER STAFF. PT ON 2L 02. SAT-94% PT SOB OF BREATH ON ARRIVAL. RR 24. PT ALERT AND ORIENTED X4. PT REQUESTING EVENING MEDICATION. MEDS HAVE BEEN REVIEWED AND ENTERED INTO CHART. PT COMPLAINS OF 5/10 PAIN IN BACK AND THAT THE BED IS UNCOMFORTABLE. SWITCHED PT BED. PT SATISFIED WITH NEW ONE. BED LOW, CALL LIGHT WITHIN REACH, WILL CONTINUE TO MONITOR.
--- NOTE | 2019-03-26 00:34 | NUR ---
PT RESTING IN BED WITH EYES CLOSED. RR EVEN AND UNLABORED AT THIS TIME. HEAD OF BED ELEVATED TO 40 DEGREE ANGLE TO PROMOTE LUNG EXPANSION. BED LOW CALL LIGHT WITHIN REACH. WILL CONTINUE TO MONITOR.
[2019-03-26 03:57] VITALS: BP 137/75; BMI 18.4
[2019-03-26 05:47] LABS: BASOPHILS 0 % (0-2); EOSINOPHILS 0 % (0-7); HEMATOCRIT 44.6 % (42.0-54.0); HEMOGLOBIN 15.3 g/dL (13.5-17.5); IMMATURE GRANULOCYTES 0.2 % (0-5); LYMPHOCYTES 8.7 % (15-50); MCH 33.1 pg (26.0-34.0); MCHC 34.3 g/dL (31.0-37.0); MCV 96.5 fL (80.0-100.0); MEAN PLATELET VOLUME 9.8 fL (7.4-10.4); MONOCYTES 3.6 % (2-11); NEUTROPHILS 87.5 % (40-80); PLATELET COUNT 229 10x3/uL (130-400); RBC 4.62 10x6/uL (4.20-6.10); RDW 14.7 % (11.5-14.5)
[2019-03-26 05:53] LABS: WBC 4.1 10x3/uL (4.8-10.8)
[2019-03-26 06:11] LABS: CALC OSMOLALITY 247 mosm/kg (275-300); CALCIUM 8.7 mg/dL (8.5-10.1); CARBON DIOXIDE 31.6 mmol/L (21.0-32.0); CHLORIDE - SERUM 98 mmol/L (98-107); CREATININE - SERUM 0.6 mg/dL (0.6-1.3); GLUCOSE 135 mg/dL (74-106); MAGNESIUM - SERUM 2.5 mg/dL (1.8-2.4); PHOSPHOROUS 3.9 mg/dL (2.5-4.9); SODIUM 122 mmol/L (136-145); UREA NITROGEN 13 mg/dL (7-18); eGFR NON AFRICAN AMERICAN > 90 mL/min (90-120)
[2019-03-26 08:44] VITALS: BP 151/80
[2019-03-26 11:24] VITALS: BMI 18.4
[2019-03-26 12:08] VITALS: BP 135/80
--- NOTE | 2019-03-26 15:11 | NUR ---
I have reviewed this patient and I concur with the Shift Assessment completed by the Licensed Practical Nurse today this shift.
--- NOTE | 2019-03-26 15:38 | NUR ---
PT LYING IN BED, COMPLAINTS OF STOMACH PAIN AND DIARHEA, WILL GET IMMODIUM FROM [facility] DR. GARCES IN REACH, SRX2. NO OTHER COMPLAINTS/CONCERNS AT THIS TIME.
--- NOTE | 2019-03-26 15:40 | NUR ---
LAS NOTE WAS ON WRONG PT. THIS PT IS HAVING COUGHING FITS. COMPLAINTS OF PAIN R/T PNEUMONIA. GAVE MEDICATIONS AND WILL ASSIST WHEN POSSIBLE
[2019-03-26 15:50] VITALS: BP 142/72
--- NOTE | 2019-03-26 17:30 | NUR ---
PT ERFUSES SCDS. VERY CLAUSTROPHOBIC AND DOESN'T WISH TO BE RESTRAINED.
[2019-03-26 19:55] VITALS: BP 150/81
--- NOTE | 2019-03-26 20:00 | NUR ---
RECIEVED REPORT. ROUNDS COMPLETED. VSS, AAO X3, DYPSNEA ON EXERTION, FOUND PT SITTING ON EDGE OF THE BED, STATES HE IS TRYING TO CATCH HIS BREATH. HELPED REPOSITION PT UP IN BED. PT VOICED THANKS. PT DENIES ANY FURTHER NEEDS AT THIS THIE WILL CPOC. CL IN REACH, BED IN LOW, SR UP X2.
--- NOTE | 2019-03-26 21:14 | NUR ---
PT STATES HE ACCIDENTALLY PULL OUT HIS PIV. NO S/S OF BLEEDING NOTED. PLACED GAUZE AND TAPED SITE. RESTRATED PIV ON PT LFA. X1 STICK. PT TOLERATE WELL. PT CURRENTLY RESTING IN BED. DENIES ANY FURTHER NEED AT THIS TIME. WILL CPOC.
[2019-03-26 23:55] VITALS: BP 102/66
[2019-03-27 03:59] VITALS: BP 130/74
[2019-03-27 05:24] LABS: BASOPHILS 0 % (0-2); EOSINOPHILS 0 % (0-7); HEMATOCRIT 43.8 % (42.0-54.0); HEMOGLOBIN 14.9 g/dL (13.5-17.5); IMMATURE GRANULOCYTES 0.2 % (0-5); MCH 33.1 pg (26.0-34.0); MCV 97.3 fL (80.0-100.0); MEAN PLATELET VOLUME 9.8 fL (7.4-10.4); MONOCYTES 10.2 % (2-11); NEUTROPHILS 86.6 % (40-80); PLATELET COUNT 216 10x3/uL (130-400); RDW 14.6 % (11.5-14.5); WBC 8.9 10x3/uL (4.8-10.8)
[2019-03-27 05:45] LABS: ALBUMIN 3.2 g/dL (3.4-5.0); ALKALINE PHOSPHATASE 49 U/L (46-116); ALT (SGPT) 30 U/L (10-68); BILIRUBIN - TOTAL 0.46 mg/dL (0.2-1.3); CALC OSMOLALITY 274 mosm/kg (275-300); CALCIUM 8.8 mg/dL (8.5-10.1); CARBON DIOXIDE 31.4 mmol/L (21.0-32.0); CHLORIDE - SERUM 101 mmol/L (98-107); CREATININE - SERUM 0.6 mg/dL (0.6-1.3); GLUCOSE 134 mg/dL (74-106); MAGNESIUM - SERUM 2.3 mg/dL (1.8-2.4); POTASSIUM - SERUM 4.3 mmol/L (3.5-5.1); PROTEIN - SERUM 5.7 g/dL (6.4-8.2); SODIUM 136 mmol/L (136-145); UREA NITROGEN 15 mg/dL (7-18); eGFR NON AFRICAN AMERICAN > 90 mL/min (90-120)
--- NOTE | 2019-03-27 07:20 | NUR ---
PT AWAKE AND ORIENTED AT THIS TIME. FIXED BEEPING I/V PUMP. SEEMS IN GOOD SPIRITS. NO COMPLAINTS/CONCERNS AT THIS TIME. CL IN REACH, SRX2.
[2019-03-27 08:09] VITALS: BP 148/81
[2019-03-27 11:12] VITALS: BP 141/76
--- NOTE | 2019-03-27 15:26 | NUR ---
I have reviewed this patient and I concur with the Shift Assessment completed by the Licensed Practical Nurse today this shift.
[2019-03-27 16:12] VITALS: BP 125/74
[2019-03-27 20:38] VITALS: BP 134/68
--- NOTE | 2019-03-27 20:50 | NUR ---
ROUNDS COMPLETED. VSS, AAOX3, DYPSPNEIC ON EXERSION. PT APPEARS SOB, AND HAS BEEN COUGHING OCCASIONALLY, SPUTUM IS PRODUCTIVE. PT STATES HE IS FEELING A LOT BETTER TODAY AND HE IS READY TO GO HOME. MEDS GIVEN. PT CURRENTLY SITTING ON THE EDGE OF THE BED. COFFEE PROVIDED PER PT REQUEST. WILL CPOC. CL IN REACH, BED IN LOW.
[2019-03-27 23:44] VITALS: BP 135/79
[2019-03-28 04:57] VITALS: BP 123/44
[2019-03-28 05:19] LABS: BASOPHILS 0 % (0-2); EOSINOPHILS 0 % (0-7); HEMATOCRIT 41.3 % (42.0-54.0); HEMOGLOBIN 13.9 g/dL (13.5-17.5); IMMATURE GRANULOCYTES 0.2 % (0-5); LYMPHOCYTES 2.9 % (15-50); MCH 32.8 pg (26.0-34.0); MCHC 33.7 g/dL (31.0-37.0); MCV 97.4 fL (80.0-100.0); MONOCYTES 8.6 % (2-11); NEUTROPHILS 88.3 % (40-80); PLATELET COUNT 205 10x3/uL (130-400); RBC 4.24 10x6/uL (4.20-6.10); RDW 14.4 % (11.5-14.5); WBC 9.7 10x3/uL (4.8-10.8)
[2019-03-28 05:43] LABS: ALBUMIN 2.9 g/dL (3.4-5.0); ALKALINE PHOSPHATASE 44 U/L (46-116); ALT (SGPT) 31 U/L (10-68); BILIRUBIN - TOTAL 0.37 mg/dL (0.2-1.3); CALC OSMOLALITY 276 mosm/kg (275-300); CALCIUM 8.8 mg/dL (8.5-10.1); CARBON DIOXIDE 32.6 mmol/L (21.0-32.0); CHLORIDE - SERUM 101 mmol/L (98-107); CREATININE - SERUM 0.7 mg/dL (0.6-1.3); GLUCOSE 132 mg/dL (74-106); MAGNESIUM - SERUM 2.4 mg/dL (1.8-2.4); POTASSIUM - SERUM 4.3 mmol/L (3.5-5.1); PROTEIN - SERUM 5.2 g/dL (6.4-8.2); SODIUM 137 mmol/L (136-145); UREA NITROGEN 16 mg/dL (7-18); eGFR NON AFRICAN AMERICAN > 90 mL/min (90-120)
[2019-03-28 08:23] VITALS: BP 162/83
[2019-03-28 11:57] VITALS: BP 176/86
--- NOTE | 2019-03-28 12:01 | NUR ---
PATIENT STATES THAT HE IS LEAVING TODAY. HE FEELS BETTER AND NEEDS TO SEE HIS PRIMARY DOCTOR OUTSIDE THE [facility]. WHEEZES NOTED IN BOTH LUNGS AND PATIENT REPLIES THAT HE ALWAYS WHEEZES HE ONLY HAS ONE GOOD LUNG. PATIENT REPORTS TAHT HE IS LEAVING AT 2 PM EVEN IF HE IS NOT DISCHARGED.DOCTORS MADE AWARE.
--- NOTE | 2019-03-28 12:44 | MORECARE ---
CASE MANAGEMENT DISCHARGE SUMMARY PATIENT: JOSE LEE UNIT: [id number] ADM DATE: 03/25/19 AGE: 73 : 47 SEX: M ROOM/BED: D.2136 AUTHOR: ALEYDA YI PHYSICIAN: REFERRING PHYSICIAN: DESTINEY FLORES MD DATE OF SERVICE: 03/28/19 Discharge Plan Patient Name: JOSE LEE Facility: [facility]:[place] : 1945 Planned Disposition: Home Anticipated Discharge Date: 03/28/19 Discharge Date: Expected LOS: 3 Initial Reviewer: [email or web address] Initial Review Date: 03/28/2019 Generated: 03/28/19 1:44 pm DCPIA - Discharge Planning Initial Assessment Updated by [id number]: Augusto Alvarez on 03/28/19 12:44 pm * Is the patient Alert and Oriented? Yes * How many steps to enter\exit or inside your home? NONE * PCP DR. JACOBS * Pharmacy [facility]. * Preadmission Environment Home Alone * ADLs Independent * Equipment Cane Elevated [place] Seat Grab Bars Nebulizer Oxygen Rolling Walker Walker * Other Equipment HOME AND PORTABLE OXYGEN, [facility] IS PROVIDER * List name and contact numbers for known caregivers / representatives who currently or will assist patient after discharge: THOMAS CALDWELLR, * Verbal permission to speak to the caregivers and representatives has been obtained from the patient. N/A * Community resources currently utilized None * Please name any agencies selected above. NONE * Additional services required to return to the preadmission environment? No * Can the patient safely return to the preadmission environment? Yes * Has this patient been hospitalized within the prior 30 days at any hospital? No Coverage Notice Reviewer: [id number] - Augusto Alvarez Notice Issued Date-Time: 03/28/2019 12:30 Notice Type: IM Discharge Notice Notice Delivered To: Patient Relationship to Patient: Machine Maintenance Supervisor Name: Delivery Method: HAND - Hand Delivered Brigitte Days: Prior Verbal Notification: Recipient Understood Notice: Yes Recipient Signature: Yes Med Rec Note Co-signed by Attending: Coverage Notice Comment: Patient Name: JOSE LEE Page [phone] at 1244 All edits/amendments must be made on the electronic document DICTATION DATE: 03/28/19 124 SUPERVISOR WOUND: TAMMY 03/28/19 124 RPT#: [id number] DC DATE: STATUS: ADM IN [facility] [address] [place] [address] END OF REPORT
--- NOTE | 2019-03-28 12:52 | MORECARE ---
CASE MANAGEMENT DISCHARGE SUMMARY PATIENT: JOSE LEE UNIT: [id number] ADM DATE: 03/25/19 AGE: 73 : 47 SEX: M ROOM/BED: D.6737 AUTHOR: KD,DOC PHYSICIAN: REFERRING PHYSICIAN: DESTINEY FLORES MD DATE OF SERVICE: 03/28/19 Discharge Plan Patient Name: JOSE LEE Facility: [facility]:[place] : 1945 Planned Disposition: Home Anticipated Discharge Date: 03/28/19 Discharge Date: Expected LOS: 3 Initial Reviewer: [email or web address] Initial Review Date: 03/28/2019 Generated: 03/28/19 1:51 pm Comments DCP- Discharge Planning Updated by [email or web address]: Augusto Alvarez on 03/28/19 11:[address] Patient Name: JOSE LEE Admission Status: ER Accout number: [id number] Admission Date: 03-25-2019 : 1945 Admission Diagnosis: Attending: DESTINEY SANTOS Current LOS: 3 Anticipated DC Date: 03-28-2019 Planned Disposition: Home Primary Insurance: [facility] MEDICARE SOLUTIONS Discharge Planning Comments: CM RECEIVED DISCHARGE ORDER, MET WITH PT IN ROOM TO DISCUSS DISCHARGE PLANNING AND NEEDS. PT REPORTS LIVING AT HOME INDEPENDENTLY AND ALONE IN WHAT HE REPORTS TO BE A VERY SMALL DISABILITY EQUIPPED APARTMENT. PT HAS CANE, ELEVATED TOILET SEAT, GRAB BARS, NEBULIZER, HOME AND PORTABLE OXYGEN, ROLLING WALKER AND WALKER FROM [facility]. PT HAS NO OUTSIDE SERVICES ASSISTING IN THE HOME. CM DISCUSSED AVAILABILITY OF HOME HEALTH, REHAB SERVICES AND MEDICAL EQUIPMENT. PT DENIES DISCHARGE NEEDS, STATES HE COULD USE A INSPECTOR FINAL ASSEMBLY CONVEYOR LINE. CM DISCUSSED HOW AND WHERE TO APPLY FOR MEDICAID PERSONAL CARE SERVICES. PT REPORTS UNDERSTANDING, ASKED IF CM COULD PRESCRIBE BROVANA AND BUDESOMIDE FOR BREATHING TREATMENTS AT HOME. CM EXPLAINED THAT CM IS NOT A DOCTOR. PT STATES THAT IT IS NOT A PROBLEM, IF NOT PRESCRIBED HERE, HE WILL TELL DOCTOR JACOBS, HIS PRIMARY CARE DOCTOR, WHO WILL PRESCRIBE THE MEDICATIONS FOR HIM. PT REPORTS HIS DAUGHTER WILL PICK HIM UP FOR DISCHARGE HOME. IMPORTANT MESSAGE FROM MEDICARE PROVIDED AND EXPLAINED. CAREER PORTALS TEACHER NURSE NOTIFIED. Deposition Operator: Augusto Antonio DCPIA - Discharge Planning Initial Assessment Updated by [id number]: Augusto Alvarez on 03/28/19 12:44 pm * Is the patient Alert and Oriented? Yes * How many steps to enter\exit or inside your home? NONE * PCP DR. JACOBS * Pharmacy [facility]. * Preadmission Environment Home Alone * ADLs Independent * Equipment Cane Elevated [place] Seat Grab Bars Nebulizer Oxygen Rolling Walker Walker * Other Equipment HOME AND PORTABLE OXYGEN, [facility] IS PROVIDER * List name and contact numbers for known caregivers / representatives who currently or will assist patient after discharge: DORA RAMSEY, DTR, * Verbal permission to speak to the caregivers and representatives has been obtained from the patient. N/A * Community resources currently utilized None * Please name any agencies selected above. NONE * Additional services required to return to the preadmission environment? No * Can the patient safely return to the preadmission environment? Yes * Has this patient been hospitalized within the prior 30 days at any hospital? No Coverage Notice Reviewer: [id number] - Augusto Alvarez Notice Issued Date-Time: 03/28/2019 12:30 Notice Type: IM Discharge Notice Notice Delivered To: Patient Relationship to Patient: Automatic Silk Screen Printer Name: Delivery Method: HAND - Hand Delivered Brigitte Days: Prior Verbal Notification: Recipient Understood Notice: Yes Recipient Signature: Yes Med Rec Note Co-signed by Attending: Coverage Notice Comment: Last DP export: 03/28/19 11:44 am Patient Name: JOSE LEE Page [phone] at 1252 All edits/amendments must be made on the electronic document DICTATION DATE: 03/28/19 1251 DIRECTOR HYDROGEN STORAGE ENGINEERING: TAMMY 03/28/19 1251 RPT#: [id number] DC DATE: STATUS: ADM IN [facility] [address] [place] [address] END OF REPORT
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
== END 2019-03-28 14:13 | disposition home or self-care (01) | DRG 189 ==
LOC: D.ER 18:06 → D.EDHOLD 20:20 → D.M2 20:30
PROVIDERS: Family Medicine; ADMIT Family Medicine Adult Medicine; ATTEND Family Medicine Adult Medicine
DX: J96.21 Acute and chronic respiratory failure with hypoxia (principal); F17.213 Nicotine dependence, cigarettes, with withdrawal; J43.9 Emphysema, unspecified; I10 Essential (primary) hypertension; I25.10 Atherosclerotic heart disease of native coronary artery without angina pectoris; J40 Bronchitis, not specified as acute or chronic

== ENCOUNTER 2020-05-24 08:00 | Outpatient (CLI) | payer MEDICARE, MEDICAID ==
[2020-05-24] MEDS ORDERED: PULMICORT0.5 MG/21 INH (10:58)
[2020-05-24] MEDS ORDERED: IPRAT-ALBUT 0.5-3 ML UPD (10:58)
[2020-05-24] MEDS ORDERED: NORVASC5 MG PO (11:01)
[2020-05-24] MEDS ORDERED: VALIUM5 MG PO (11:02)
[2020-05-24] MEDS ORDERED: ZOLOFT25 MG PO (11:02)
[2020-05-24] MEDS ORDERED: DALIRESP500 MCG PO (11:03)
[2020-05-24 11:58] LABS: HEMATOCRIT 41.1 % (42.0-54.0); HEMOGLOBIN 13.8 g/dL (13.5-17.5); MCH 32.2 pg (26.0-34.0); MCHC 33.6 g/dL (31.0-37.0); MEAN PLATELET VOLUME 9.6 fL (7.4-10.4); RBC 4.28 10x6/uL (4.20-6.10); WBC 7.3 10x3/uL (4.8-10.8)
[2020-05-24 12:09] LABS: PROTIME 13.1 SECONDS (11.6-15.0)
[2020-05-24 12:14] LABS: ALBUMIN 3.5 g/dL (3.4-5.0); ALKALINE PHOSPHATASE 84 U/L (30-120); ALT (SGPT) 23 U/L (10-68); BILIRUBIN - TOTAL 0.85 mg/dL (0.2-1.3); CALC OSMOLALITY 263 mosm/kg (275-300); CALCIUM 8.7 mg/dL (8.5-10.1); CARBON DIOXIDE 31.4 mmol/L (21.0-32.0); CHLORIDE - SERUM 97 mmol/L (98-107); CREATININE - SERUM 0.7 mg/dL (0.6-1.3); GLUCOSE 100 mg/dL (74-106); POTASSIUM - SERUM 3.8 mmol/L (3.5-5.1); PROTEIN - SERUM 6.4 g/dL (6.4-8.2); SODIUM 132 mmol/L (136-145); UREA NITROGEN 10 mg/dL (7-18); eGFR NON AFRICAN AMERICAN > 90 mL/min (90-120)
[2020-05-24 12:52] LABS: BILIRUBIN NEGATIVE (NEGATIVE); GLUCOSE NEGATIVE (NEGATIVE); KETONE NEGATIVE (NEGATIVE); NITRITE NEGATIVE (NEGATIVE); SPECIFIC GRAVITY 1.015 (1.005-1.020); UROBILINOGEN NORMAL (NORMAL)
[2020-05-24 12:53] LABS: BACTERIA FEW /hpf (NEGATIVE); EPITHELIAL CELLS RARE /hpf (0-5); RED CELLS - URINE NONE SEEN /hpf (0-5); WHITE CELLS - URINE RARE /hpf (NEGATIVE)
== END 2020-05-24 08:01 | disposition home or self-care (01) ==
LOC: D.PAN 08:00 → EDSTATUS 05-28 07:30 → D.SDCHOLD 05-28 07:30
PROVIDERS: ATTEND Thoracic Surgery (Cardiothoracic Vascular Surgery)
DX: I73.9 Peripheral vascular disease, unspecified (principal)

== ENCOUNTER → 2020-06-01 10:13 | Outpatient (CLI) | payer MEDICARE, MEDICAID ==
[~2020-06-01 10:13] MED LIST changes: +NORVASC5 MG PO; +PULMICORT0.5 MG/21 INH; +VALIUM5 MG PO; +ZOLOFT25 MG PO
[2020-06-01 10:51] LABS: BILIRUBIN NEGATIVE (NEGATIVE); GLUCOSE NEGATIVE (NEGATIVE); KETONE NEGATIVE (NEGATIVE); NITRITE NEGATIVE (NEGATIVE); UROBILINOGEN NORMAL (NORMAL)
[2020-06-01 10:52] LABS: BACTERIA FEW /hpf (NEGATIVE); EPITHELIAL CELLS 0-5 /hpf (0-5); RED CELLS - URINE OCC /hpf (0-5); WHITE CELLS - URINE 0-5 /hpf (NEGATIVE)
== END | disposition home or self-care (01) ==
LOC: D.LAB 10:13
PROVIDERS: ATTEND Thoracic Surgery (Cardiothoracic Vascular Surgery)
DX: N39.0 Urinary tract infection, site not specified (principal)

== ENCOUNTER 2020-06-05 06:41 | Inpatient (IN) | payer MEDICARE, MEDICAID ==
[~2020-06-05] VITALS: Ht 182.9 cm; Wt 55.8 kg
[2020-06-05] VITALS (14 sets, daily range): BP systolic 90–148; BP diastolic 47–82; BMI 17.6; BMI 16.7
--- NOTE | 2020-06-05 16:23 | NUR ---
PT ARRIVED FROM OR ALERT AND ORIENTED VSS COMPLAINTS OF BACK PAIN, R IJ CVL DRESSING CDI, R GROIN DRESSING CDI, SOFT, NO SIGNS OF BLEEDING, BALTAZAR DRAIN COMPRESSED WITH BLOODY DRAINAGE, PULSES EASILY PALPABLE, KESSLER CATHETER DRAINING YELLOW URINE, O2 2L NC, R RADIAL A LINE ZEROED WITH GOOD WAVEFORM, WRIST PROTECTOR IN PLACE, EDUCATED CHURCH HISTORY TEACHER LIGHT AND PLACED WITHIN REACH
--- NOTE | 2020-06-05 19:38 | NUR ---
PT RECEIVED WITH EYES OPEN. USES CALL LIGHT REQUEST WATER. WATER GIVEN AND TABLE WHERE WATER CAN BE IN REACH. ASK FOR SOMETHING TO EAT, WITH JELLO GIVEN. COMPLAINS OF BACK PAIN, NO TIME FOR NEXT DOSE PER ORDER. WILL CONTINUE TO OBSERVE. RIGHT RADIAL OLY PATENT WITH GOOD READING WHEN PT WILL KEEP STILL. PT REMINDED, BUT CONTINUES TO MOVE ARM. CALL LIGHT IN REACH. WILL CONTINUE TO OBSERVE.
[2020-06-06] VITALS (28 sets, daily range): BP systolic 108–140; BP diastolic 44–84; Ht 182.9 cm; Wt 55.8 kg
--- NOTE | 2020-06-06 05:29 | NUR ---
CHG BATH PROVIDED WITH COMPLETE LINEN CHANGE. CATH CARE PROVIDED. PT UP IN CHAIR AT BEDSIDE. TOLERATED WELL. CALL LIGHT IN REACH. WILL CONTINUE TO OBSERVE,
[2020-06-06 06:35] LABS: ALBUMIN 2.9 g/dL (3.4-5.0); ALKALINE PHOSPHATASE 68 U/L (30-120); ALT (SGPT) 17 U/L (10-68); BILIRUBIN - TOTAL 0.69 mg/dL (0.2-1.3); CALC OSMOLALITY 268 mosm/kg (275-300); CALCIUM 8.2 mg/dL (8.5-10.1); CHLORIDE - SERUM 102 mmol/L (98-107); CREATININE - SERUM 0.6 mg/dL (0.6-1.3); GLUCOSE 119 mg/dL (74-106); POTASSIUM - SERUM 3.5 mmol/L (3.5-5.1); PROTEIN - SERUM 5.2 g/dL (6.4-8.2); SODIUM 135 mmol/L (136-145); UREA NITROGEN 8 mg/dL (7-18); eGFR NON AFRICAN AMERICAN > 90 mL/min (90-120)
[2020-06-06 07:17] LABS: HEMATOCRIT 34.9 % (42.0-54.0); HEMOGLOBIN 11.7 g/dL (13.5-17.5); LYMPHOCYTES 14.2 % (15-50); MCH 32.1 pg (26.0-34.0); MCHC 33.5 g/dL (31.0-37.0); MCV 95.9 fL (80.0-100.0); MEAN PLATELET VOLUME 10.2 fL (7.4-10.4); NEUTROPHILS 71.2 % (40-80); PLATELET COUNT 208 10x3/uL (130-400); RBC 3.64 10x6/uL (4.20-6.10); RDW 14.4 % (11.5-14.5); WBC 10.8 10x3/uL (4.8-10.8)
--- NOTE | 2020-06-06 08:48 | NUR ---
0700 PT RECIEVED UP IN CHAIR ALERT AN DORIENTED VSS DENIES PAIN AND ALL NEEDS, L SUBCLAVIAN CVL DRESSING CDI, SL, L CTX1 TO WATER SEAL, SEROUS DRAINAGE PRESENT, SEE SHIFT ASSESSMENT FOR DETAILS, WILL CONTINUE TO MONITOR 0845 TOOK AM MEDS WITHOUT DIFFICULTY, ATE PANCAKES BROUGHT BY FOR BREAKFAST
--- NOTE | 2020-06-06 08:54 | NUR ---
0700 PT RECIEVEDUP IN CHAIR ALERT AN DORIENTED O2 2L NC, R IJ CVLDRESSING CDI WITH PLASMALYTE AND ZINACEF INFUSING, R RADIAL A LINE WITH WRIST PROTECTOR IN PLACE, GOOD WAVEFORM, R GROIN DRESSING CDI, BALTAZAR DRAIN COMPRESSED WITH BLOODY DRAINAGE, PULSES EASILY PALPABLE, KESSLER CATHETER DRAINING YELLOW URINE 0730 DR JUAREZ IN ROOM ORDERS TO DC PLASMALYTE A LINE AND KESSLER, 0830 TOOK AM MEDS WITHOUT DIFFICULTY, ATE 75% BREAKFAST, A LINE DCD PER PROTOCOL NO SIGNS OF BLEEDING, TIP INTACT, KESSLER DCD PER PROTOCOL TIP INTACT
--- NOTE | 2020-06-06 09:33 | OP ---
PATIENT NAME: JOSE LEE MEDICAL RECORD: [id number] :[birth year] LOCATION:D.CVI [id number] ADMISSION DATE:06/05/20 SURGEON: YOUSIF JUAREZ MD DATE OF OPERATION: 06/05/2020 SURGEON: Yousif Juarez MD PROCEDURES PERFORMED: 1. Right common femoral artery endarterectomy with patch closure. 2. Right common iliac stent. 3. Right external iliac stent. 4. Aortogram times 2. 5. Iliac angiogram. PREOPERATIVE DIAGNOSIS: Severe peripheral vascular disease with bilateral iliac and femoral stenosis as well as superficial femoral and popliteal stenosis on the right with rest pain. POSTOPERATIVE DIAGNOSES: Severe peripheral vascular disease with bilateral iliac and femoral stenosis as well as superficial femoral and popliteal stenosis on the right with rest pain. ANESTHESIA: General endotracheal anesthesia. ESTIMATED BLOOD LOSS: 600 cc. COMPLICATIONS: None. SPECIMENS: Femoral plaque. CONDITION: Stable. DISPOSITION: CV-ICU. OPERATIVE FINDINGS: 1. Severe femoral plaque extending the entire length of the common femoral from the inguinal ligament and involving the proximal superficial femoral and the origin of the larger of the 2 profunda branches. 2. A 8 x 38 mm covered common iliac stent. 3. Balloon angioplasty of the external iliac. 4. A 7 x 58 mm covered stent in the external iliac covering the collateral vessel. 5. Extensive endarterectomy with patch closure with CorMatrix. 6. Excellent Doppler dorsalis pedis and posterior tibial at the conclusion of the case. OPERATIVE INDICATION: Rest pain and severe peripheral vascular disease. DESCRIPTION OF PROCEDURE: The patient was brought to the operating suite. General anesthesia was obtained, the patient was prepped and draped. Vertical incision was made over the right femoral artery. The side branches were dissected out and encircled with vessel loops, profunda branches and superficial femoral encircled with vessel loops and working inguinal ligament. A soft spot was obtained. Heparin was given. The artery was cannulated. Guidewire was passed. Pigtail catheter was placed. Arteriogram was performed. The length of OPERATIVE REPORT [id number] JOSE LEE the stent was measured. The 8-mm common iliac stent was placed. It was post-dilated, there was poor flow through the external iliac and it was dilated twice with a 6 x 40 balloon. A covered 7 x 58 mm stent was placed. There were no apparent complications. Completion arteriogram and sheath arteriogram revealed excellent flow. The guidewire was removed and the insertion site was oversewn with Prolene. Additional heparin was given. Inflow to the femoral was clamped. Arteriotomy was made and extended the entire length of the femoral artery. The extensive large plaque was removed. Thorough irrigation was undertaken. All bits of loose debris were removed distally at the origin of the superficial femoral where there was plaque, that plaque was then tacked to the wall with a good 4-5 mm ostium of the superficial femoral and excellent backflow from the profunda femoral. The patch was sutured along the edge of the arteriotomy. Prior to completing the anastomosis, backbleeding was allowed from all of the major vessels. The flow was restored first to the profunda and then to the superficial femoral. Interrupted sutures were used for hemostasis. Protamine was given. Thorough irrigation was undertaken. A drain was placed through a separate stab. Wound was closed with subcutaneous and with skin clips. The patient was stable to the CV ICU. TRANSINT:[id number] Voice Confirmation ID: [id number] DOCUMENT ID: [id number] YOUSIF JUAREZ MD at 0933 CC: ROSY JACOBS DO and SEBASTIEN MONTEJO M.D. [id number] DICTATION DATE: 06/05/20 173 SOLAR PANEL TECHNICIAN: 06/05/20 2226 ADM IN [facility] [address] [place] [address]
--- NOTE | 2020-06-06 17:31 | NUR ---
1200 PT ATE 75% LUNCH 1300 AMBULATED WITH THERAPY 1700 ATE 75% DINNER AMBULATED IN HALLWAY WITH STAND BY ASSIST, PT ABLE TO REPOSITION SELF THROUGHOUT DAY, USES IS [id number], DENIES ALL NEEDS
--- NOTE | 2020-06-06 19:30 | NUR ---
PT AOX4, VSS, DENIES PAIN AT THIS TIME. UNLABORED RESPIRATIONS, 1L O2 VIA NC, SPO2 93. COUGH/DB/IS WITH GOOD EFFORT. PERIPHERAL PULSES PRESENT. BOWEL SOUNDS ACTIVE IN ALL QUADRANTS. R GROIN WITH DRSG CDI, BALTAZAR X1 COMPRESSED AND INTACT. PT REPOSITIONS SELF INDEPENDENTLY. PT DENIES FURTHER NEEDS AT THIS TIME. CALL LIGHT AND BEDSIDE TABLE WITHIN PT REACH. CPOC.
--- NOTE | 2020-06-06 21:42 | NUR ---
HS MEDS GIVEN WITH FRESH WATER. TOLERATED WELL. PT DENIES NEEDS. VSS, CALL LIGHT WITHIN PT REACH. CPOC.
--- NOTE | 2020-06-06 23:30 | NUR ---
REASSESSMENT COMPLETE, NO NEW CHAGNES AT THIS TIME. PT REPOSITIONED FOR COMFORT WITH MINIMAL ASSISTANCE. R GROIN BALTAZAR COMPRESSED AND INTACT. PT DENIES NEEDS. CALL LIGHT AND BEDSIDE TABLE WITHIN PT REACH. CPOC.
[2020-06-07] VITALS (8 sets, daily range): BP systolic 124–146; BP diastolic 58–74
--- NOTE | 2020-06-07 03:30 | NUR ---
REASSESSMENT COMPLETE, NO NEW CHANGES AT THIS TIME. PT REPOSITIONS SELF INDEPENDENTLY. VSDavid, R GROIN WITH DRSG CDI, BALTAZAR INTACT AND COMPRESSED. DENIES NEEDS. CALL LIGHT WITHIN PT REACH. CPOC.
--- NOTE | 2020-06-07 04:32 | NUR ---
PT REQUESTS PRN PAIN MEDICATION FOR BACK PAIN 06/01. MEDICATION PROVIDED AND PT REPOSITIONED FOR COMFORT. VSS, CPOC.
--- NOTE | 2020-06-07 05:42 | NUR ---
PT REFUSES BATH, STATES HE WILL CLEAN UP WHEN HE GOES HOME TODAY
--- NOTE | 2020-06-07 08:21 | NUR ---
RT GROIN BALTAZAR DCD BY DR JUAREZ AT THIS TIME, DRESSING APPLIED PER DR JUAREZ ORDERS, SITE CDI. ALSO PER ORDERS CVL DCD AFTER 2 SUITURES DCD, CATHETER TIP INTACT. PRESSURE HELD FOR 5 MIN. GAUZE AND TAGEDERM PLACED. NO BLEEDING SITE WDL. VSS. NO ACUTE DISTERSS NOTED. WILL CONTINUE PLAN OF CARE.
--- NOTE | 2020-06-07 09:27 | NUR ---
PT WALKED A BIG LOOP AROUND UNIT WITH STAND BY ASSSIT USING CANE. PT STATED HE FELT GOOD ON THE WALK AND IS READY TO GO HOME. SITTING UP IN CHAIR AT THIS TIME. VSS. WILL CONTINUE PLAN OF CARE.
--- NOTE | 2020-06-07 11:30 | NUR ---
NOTED PT TO DISCHARGE HOME. DISCHARGE PAPERWORK REVIEWED WITH PT. DISCHARGE PAPERWORK SIGNED. PT STATES UNDERSTANDING OF TEACHINGS AND UPCOMING APPTS. STATED WILL LIMIT ACTIVITY DIRECTED BY PHYSICIAN. VSS. DENIES ANY NEEDS. WILL CONTINUE PLAN OF CARE.
--- NOTE | 2020-06-07 11:38 | NUR ---
PT DRESSED AND WAITING TO FAMILY TO ARRIVE TO GO HOME.
--- NOTE | 2020-06-07 11:57 | NUR ---
PT DISCHARGED HOME AT THIS TIME WITH ALL PERSONAL ITEMS VIA PERSONAL VEHICLE WITH DC PAPERWORK. PT DENIES ANY QUESTIONS OR CONCERNS. VSS. NO ACUTE DISTRESS NOTED. NO FURTHER ACTIONS.
--- NOTE | 2020-06-08 08:50 | MORECARE ---
CASE MANAGEMENT DISCHARGE SUMMARY PATIENT: JOSE LEE UNIT: [id number] ADM DATE: 06/05/20 AGE: 74 : 49 SEX: M ROOM/BED: D.08 AUTHOR: KD,DOC PHYSICIAN: REFERRING PHYSICIAN: PRIMITIVO JUAREZ MD DATE OF SERVICE: 06/08/20 Discharge Plan Patient Name: JOSE LEE Facility: [facility]:[place] : 1945 Planned Disposition: Home Anticipated Discharge Date: 06/07/20 Discharge Date: 06/07/2020 Expected LOS: 2 Initial Reviewer: [id number] Initial Review Date: 06/07/2020 Generated: 06/08/20 9:49 am Comments DCP- Discharge Planning Updated by [email or web address]: Marie Hollins on 06/07/20 10:[address] CM MET WITH THE PATIENT AT THE BEDSSIDE. EXPLAINED MY ROLE. HE GAVE PERMISSION TO CONTINUE WITH THE ASSESSMENT. THE PATIENT LIVES ALONE. HE HAS AFRIEND TO ASSIST HIM. HE ALSO HAS A BROTHER, HUGO LEE W/ CONTACT PHONE NUMBER [phone]. HE IS RETURNING TO HOME AT DISCHARGE. FEELS SAFEIN HIS HOME. DENIES ANY NEED FOR ANY SERVICES. DECLINES HOME HEALTH. MS DORA RAMSEY, A FRIEND WILL PROVIDE TRANSPORTATION TO HOME. HE WILL CALL WHEN DISCHARGE PAPERWORK HAS BEEN OBTAINED. HE HAS 4 STAIRS TO ENTER HIS HOME W/ RAIL. PCP- DR ROSY JACOBS [facility]- [facility] DME- CANE , WALKER, OXYGEN AND NEBULIZER. HIS OXYGEN SUPPLIES ARE FROM [facility]. DENIES ANY ADDITIONAL NEEDS. DCPIA - Discharge Planning Initial Assessment Updated by [email or web address]: Marie Hollins on 06/07/20 11:25 am * Is the patient Alert and Oriented? Yes * How many steps to enter\exit or inside your home? 4 W/ RAIL * PCP DR ROSY JACOBS * Pharmacy [facility] * Preadmission Environment Home Alone * ADLs Independent * Equipment Cane Nebulizer Oxygen * Other Equipment N/A * List name and contact numbers for known caregivers / representatives who currently or will assist patient after discharge: HUGO LEE- BROTHER- [phone] * Verbal permission to speak to the caregivers and representatives has been obtained from the patient. No * Community resources currently utilized None * Please name any agencies selected above. N/A * Additional services required to return to the preadmission environment? No * Can the patient safely return to the preadmission environment? Yes * Has this patient been hospitalized within the prior 30 days at any hospital? No Coverage Notice Reviewer: [id number] Avis Hollins Notice Issued Date-Time: 06/07/2020 11:06 Notice Type: IM Discharge Notice Notice Delivered To: Patient Relationship to Patient: Self Senior Quality Control Inspector Name: Delivery Method: HAND - Hand Delivered Brigitte Days: Prior Verbal Notification: Recipient Understood Notice: Yes Recipient Signature: Yes Med Rec Note Co-signed by Attending: Coverage Notice Comment: CM EXPLAINED DISCHARGE IMM. PATIENT HAD NO QUESTIONS AND VOICED NO CONCERNS. DISCHARGE IMM SERVED. SIGNATURE OBTAINED Patient Name: JOSE LEE Page [id number] at 0850 All edits/amendments must be made on the electronic document DICTATION DATE: 06/08/2049 DRY SAND MOLDER: TAMMY 06/08/2049 RPT#: [id number] DC DATE:06/07/20 STATUS: DIS IN [facility] [address] [place] [address] END OF REPORT
== END 2020-06-07 11:59 | disposition home or self-care (01) | DRG 253 ==
LOC: D.SDCHOLD 06:41 → D.CVICU 06:41 → D.SDCHOLD 11:00 → D.CVICU 13:46 → D.ICU 06-06 08:50 → D.CVICU 06-07 11:59
PROVIDERS: ADMIT Thoracic Surgery (Cardiothoracic Vascular Surgery); ATTEND Thoracic Surgery (Cardiothoracic Vascular Surgery)
PROC: 047H0DZ Dilation of Right External Iliac Artery with Intraluminal Device, Open Approach (ICD-10-PCS; 2020-06-05)
PROC: 047C0DZ Dilation of Right Common Iliac Artery with Intraluminal Device, Open Approach (ICD-10-PCS; 2020-06-05)
PROC: 04CK0ZZ Extirpation of Matter from Right Femoral Artery, Open Approach (ICD-10-PCS; principal; 2020-06-05 11:00)
PROC: 04UK0JZ Supplement Right Femoral Artery with Synthetic Substitute, Open Approach (ICD-10-PCS; 2020-06-05 11:00)
DX: I70.221 Atherosclerosis of native arteries of extremities with rest pain, right leg (principal); J96.11 Chronic respiratory failure with hypoxia; I10 Essential (primary) hypertension; E78.5 Hyperlipidemia, unspecified; I25.10 Atherosclerotic heart disease of native coronary artery without angina pectoris; F17.200 Nicotine dependence, unspecified, uncomplicated; J43.9 Emphysema, unspecified; J30.9 Allergic rhinitis, unspecified

== ENCOUNTER → 2020-07-02 11:00 | Outpatient (CLI) | payer MEDICARE, MEDICAID ==
[2020-06-06 12:46] VITALS: BMI 16.6
== END | disposition home or self-care (01) ==
LOC: D.HCCECHO 06-12 13:00
PROVIDERS: ATTEND Internal Medicine Cardiovascular Disease
DX: I25.10 Atherosclerotic heart disease of native coronary artery without angina pectoris (principal)